=== PATIENT | female | born 1975 | race Caucasian/White ===

== ENCOUNTER 2023-02-23 20:44 | Outpatient (REF) | payer BC, SELFPAY ==
[2023-03-01 15:10] LABS: Age Gdln ACOG Testing Note (.); HPV Aptima Negative (Negative); IGP, Aptima HPV, rfx 16/18,45 Note (.)
== END 2023-02-23 20:45 | disposition home or self-care (01) ==
LOC: LAB 20:44
PROVIDERS: Visit Provider Obstetrics & Gynecology
DX: Z01.419 Encounter for gynecological examination (general) (routine) without abnormal findings (principal)
CPT/HCPCS: 87624; G0145

== ENCOUNTER 2024-02-29 20:06 | Outpatient (REF) | payer BC, SELFPAY ==
[2024-03-06 12:12] LABS: Age Gdln ACOG Testing Note (.); HPV Aptima Negative (Negative); IGP, Aptima HPV, rfx 16/18,45 Note (.)
== END 2024-02-29 20:07 | disposition home or self-care (01) ==
LOC: LAB 20:06
PROVIDERS: Visit Provider Obstetrics & Gynecology
DX: Z01.419 Encounter for gynecological examination (general) (routine) without abnormal findings (principal)
CPT/HCPCS: 87624; 88175

== ENCOUNTER 2025-03-13 21:56 | Outpatient (REF) | payer BC, SELFPAY ==
--- OUTSIDE RECORDS SUMMARY | 2025-03-13 22:02 | XMS_ITS | CCD ---
Author Organization [facility]ini[facility] Care Team Providers Care Director Specialty Name Role Phone NIEVES, SAMER Unavailable Unavailable JACQUE HANSON Unavailable Unavailable NIEVES, SAMER Unavailable Unavailable DR KIT MENDEZ Admitting Unavailable DR KIT MENDEZ Attending Unavailable REQUEST, NONE LISTED Primary Care Unavaila ble DR KIT MENDEZ Consulting Unavailable MD Jacque Hanson Primary Care Provider MD Jacque Hanson Attending Provider MD Jacque Hanson Primary Care Provider Kit Mendez Attending Provider Diane Peraza Unavailable JERICHO Peraza Attending Provider MD Jacque Hanson Primary Care Provider JERICHO Peraza Attending Provider MD Jacque Hanson Primary Care Provider JERICHO Peraza Attending Provider MD Jacque Hanson Primary Care Provider JERICHO Peraza Attending Provider MD Jacque Hanson Primary Care Provider DO Kit Mendez Attending Provider Jacque Hanson MD Primary Care Provider Kit Mendez DO Attending Provider Diane Perez Attending Provider Jacque Hanson MD Primary Care Provider Karmen, Diane R Attending Unavailable Ruttino, Diane R Admitting Unavailable Ketvertis, Jacque Primary Care Unavailable Ruttino, Diane R Attending Unavailable Ketvertis, Jacque Primary Care Unavailable Ruttino, Diane R Admitting Unavailable Ruttino, Diane R Attending Unavailable Ketvertis, Jacque Primary Care Unavailable Ruttino, Diane R Admitting Unavailable Andrea, Kit Admitting Unavailable Andrea, Kit Attending Unavailable Ketvertis, Jacque Primary Care Unavailable Ruttino, Diane R Admitting Unavailable Ketvertis, Jacque Primary Care Unavailable Ruttino, Diane R Attending Unavailable Ruttino, Diane R Admitting Unavailable Ketvertis, Jacque Primary Care Unavailable Ruttino, Diane R Attending Unavailable Ketvertis, Jacque Primary Care Unavailable Ketvertis, Jacque Attending Unavailable Ketvertis, Jacque Admitting Unavailable Ketvertis Jacque BENITEZ Unavailable [phone] TIMA LUGO Attending Unavailable ANDREA, KIT Attending Unavailable KETVERTIS, JACQUE Sanchez Attending Unavailable KETVERTIS, JACQUE Sanchez Attending Unavailable KETVERTIS, JACQUE Sanchez Referring Unavailable KETVERTIS, JACQUE Sanchez Referring Unavailable Allergies Allergy Classification Reported Allergen(s) Allergy Type Date of Onset Reaction(s) Facility (14 sources) gabapentin; Translations: [GABAPENTIN] Drug Allergy 04-09-2018 Headache [facility] Repository (1 source) gabapentin Drug Allergy 02-16-2017 [facility] Repository (1 source) Unable to Assess Drug allergy (disorder) 02-19-2018 [facility] Repository Medications Current Medications Medication Drug Class(es) Dates Sig (Normalized) Sig (Original) amoxicillin 875 mg / clavulanate 125 mg oral tablet (2 sources) Penicillin-class Antibacterial Start: 12-26-2024 End: 01-05-2025 take 1 tablet by mouth in the morning amoxicillin-clavu lanate (Augmentin) 875-125 MG tablet Indications: Acute bacterial sinusitis Take 1 tablet (875 mg) by mouth in the morning and 1 tablet (875 mg) before bedtime. Do all this for 10 days. 20 tablet 12/26/2024 01/05/2025 Active 24 hr metFORMIN hydrochloride 500 mg extended release oral tablet (1 source) Biguanide metFORMIN HCl ER 500 MG Oral for 30 Days Active pimecrolimus 10 mg/ml topical cream (8 sources) Calcineurin Inhibitor Immunosuppressant Start: 05-29-2024 pimecrolimus (Elidel) 1 % cream APPLY A THIN LAYER TO AFFECTED AREAS ON FACE ONCE A DAY NEEDED FOR FLARES 05/29/2024 Active Problems Active Problems Problem Classification Problem Date Documented Date Episodic/Chronic Immunizations and screening for infectious disease (1 source) Encounter for screening for human papillomavirus (HPV); Translations: [ENC SCREENING HUMAN PAPILLOMAVIRUS] Onset: 02-20-2022 Episodic Menopausal disorders (13 sources) Menopausal flushing; Translations: [Menopausal and female climacteric states] Onset: 11-14-2022 02-02-2023 Chronic Nonmalignant breast conditions (13 sources) Fibrocystic disease of breast; Translations: [Diffuse cystic mastopathy of unspecified breast] Onset: 01-30-2023 01-30-2023 Chronic Other diseases of veins and lymphatics (1 source) Vascular insufficiency; Translations: [Venous insufficiency (chronic) (peripheral)] Episodic Other diseases of veins and lymphatics (1 source) Venous insufficiency (chronic) (peripheral) Episodic Other screening for suspected conditions (not mental disorders or infectious disease) (3 sources) Encounter for screening mammogram for malignant neoplasm of breast; Translations: [Patient encounter status] Onset: 03-28-2024 03-13-2025 Episodic Other upper respiratory infections (20 sources) Chronic maxillary sinusitis; Translations: [Chronic maxillary sinusitis] Onset: 01-30-2023 Resolved: 02-02-2023 02-02-2023 Chronic Other upper respiratory infections (2 sources) Acute bacterial sinusitis; Translations: [Acute sinusitis, unspecified] 12-26-2024 Episodic Residual codes; unclassified (8 sources) Bilateral lower limb edema; Translations: [Localized edema] 09-07-2023 Episodic Residual codes; unclassified (3 sources) Localized edema; Translations: [Edema] 09-07-2023 Episodic Residual codes; unclassified (2 sources) Postmenopausal state; Translations: [Asymptomatic menopausal state] 03-13-2025 Episodic Thyroid disorders (15 sources) Thyroid nodule; Translations: [Nontoxic single thyroid nodule] Onset: 01-30-2023 01-30-2023 Chronic Unclassified (1 source) Varicose veins of left lower extremity with pain; Translations: [Varicose veins of left lower extremity with pain] Onset: 08-21-2023 Unclassified (1 source) Varicose veins of right lower extremity with pain; Translations: [Varicose veins of right lower extremity with pain] Onset: 08-07-2023 Past or Other Problems Problem Classification Problem Date Documented Da te Episodic/Chronic Anxiety disorders (13 sources) Anxiety; Translations: [Anxiety disorder, unspecified] Onset: 3 Resolved: 3 02-02-2023 Chronic Chronic obstructive pulmonary disease and bronchiectasis (13 sources) Bronchitis; Translations: [Bronchitis, not specified as acute or chronic] Onset: 3 Resolved: 3 02-02-2023 Episodic Esophageal disorders (13 sources) Gastroesophageal reflux disease; Translations: [Gastro-esophageal reflux disease without esophagitis] Onset: 3 Resolved: 3 02-02-2023 Chronic Other gastrointestinal disorders (13 sources) Dysphagia; Translations: [Dysphagia, unspecified] Onset: 3 Resolved: 3 02-02-2023 Episodic Other infections; including parasitic (13 sources) History of Lyme disease; Translations: [Personal history of other infectious and parasitic diseases] Onset: 8 Resolved: 3 05-31-2023 Episodic Other lower respiratory disease (13 sources) Cough; Translations: [Cough] Onset: 3 Resolved: 3 02-02-2023 Episodic Other lower respiratory disease (13 sources) Wheezing; Translations: [Wheezing] Onset: 3 Resolved: 3 02-02-2023 Episodic Other nervous system disorders (13 sources) Muscle twitch; Translations: [Fasciculation] Onset: 3 01-30-2023 Episodic Other nervous system disorders (13 sources) Disorder of large intestine; Translations: [Other disturbances of skin sensation] Onset: 3 Resolved: 3 02-02-2023 Episodic Other nervous system disorders (13 sources) Involuntary movement; Translations: [Unspecified abnormal involuntary movements] Onset: 8 Resolved: 3 05-31-2023 Episodic Other nervous system disorders (13 sources) Skin sensation disturbance; Translations: [Unspecified disturbances of skin sensation] Onset: 9 Resolved: 3 05-31-2023 Episodic Superficial injury; contusion (2 sources) Insect bite of lower limb; Translations: [Insect bite (nonvenomous), unspecified lower leg, initial encounter] 03-12-2024 Episodic Varicose veins of lower extremity (20 sources) Varicose veins of lower extremity; Translations: [Varicose veins of bilateral lower extremities with other complications] Onset: 3 Episodic Results Test Name Value Interpretation Reference Range Facility CT SINUS WOon 06-17-2024 CT SINUS WO EXAMINATION: CT SINU S WO HISTORY: chronic sinusitis left-sided maxillary sinus pressure and drainage. TECHNIQUE: Spiral high resolution axial unenhanced CT images were obtained through the paranasal sinuses with sagittal, coronal reconstructions. All CT scans at this facility use dose modulation, iterative reconstruction, and/or weight based dosing when appropriate to reduce radiation dose to as low as reasonably achievable. COMPARISON: None. RESULT: Post-Surgical Findings: None Sinus Chambers: Clear. Nasal Cavities: Visualized nasal cavities are patent. Ostiomeatal Complex: Patent within the constraints of the study. Other: The visualized mastoid air cells and middle ear cavities are clear. The soft tissues of the face and orbits are within normal limits within the limitations of the study. Visualized brain grossly unremarkable. IMPRESSION: Clear paranasal sinuses. ELECTRONICALLY SIGNED BY: Chava Fleming MD Normal Not Available US THYROIDon 06-12-2024 US THYROID US THYROID Reason for exam: Nodules Technique: Ultrasound of the thyroid and lower neck was performed, with color flow Doppler and spectral analysis. Comparison: 06/16/2023, 06/24/2022 FINDINGS: Right lobe: Normal size and parenchymal echogenicity. Complex, hypoechoic circumscribed nodule of the posterior right mid gland measures 8 x 6 x 7 mm. Left lobe: Normal size and parenchymal echogenicity. No evidence of any mass, cyst or shadowing calcification. Isthmus: Normal size and parenchymal echogenicity. No evidence of any mass, cyst or shadowing calcification. Lymph nodes: Negative for lymphadenopathy. Measurements: Impression: Subthreshold nodule in the right lobe, TI-RADS 4, stable from 06/16/2023 and 06/24/2022. Right lobe: 5.1 x 1.9 x 1.6 cm Left lobe: 4.7 x 1.5 x 1.5 cm Isthmus: 0.23 cm Reference: ACR white paper 2017. Followup: TR3 lesion: Thyroid US at 1, 3 and 5 years. TR4 lesion: Thyroid US at 1, 2, 3 and 5 years. TR5 lesion: Thyroid ultrasound every year for up to 5 years. Dictated on: 06/12/2024 9:47 PM This report has been electronically signed and approved by the interpreting Radiologist. Normal Not Available Comprehensive Metabolic Pane ankur 06-06-2024 Albumin [Mass/Vol] 4.5 g/dL Normal 3.5-5.7 [facility] Comment on above: Performed By: #### L IPID, CMP, TSH3 #### [facility] [address] Albumin/Globulin [Mass ratio] 2.4 {ratio} Normal [facility] Comment on above: Performed By: #### L IPID, CMP, TSH3 #### [facility] [address] [place] [id number] [place] ALP [Catalytic activity/Vol] 37 U/L Normal 34-104 [facility] Comment on above: Performed By: #### L IPID, CMP, TSH3 #### [facility] [address] [place] [id number] [place] ALT [Catalytic activity/Vol] 12 U/L Normal 7-52 [facility] Comment on above: Performed By: #### L IPID, CMP, TSH3 #### [facility] [address] [place] [address] [place] Anion gap [Moles/Vol] 10.3 mmol/L Normal 6.0-15.0 [facility] Comment on above: Performed By: #### L IPID, CMP, TSH3 #### [facility] [address] [place] [address] [facility] AST [Catalytic activity/Vol] 13 U/L Normal 13-39 [facility] Comment on above: Performed By: #### L IPID, CMP, TSH3 #### [address] Bilirubin [Mass/Vol] 0.9 mg/dL Normal 0.3-1.0 [facility] Comment on above: Performed By: #### L IPID, CMP, TSH3 #### [address] Calcium [Mass/Vol] 9.6 mg/dL Normal 8.6-10.3 [facility] Comment on above: Performed By: #### L IPID, CMP, TSH3 #### [address] Chloride [Moles/Vol] 104 mmol/L Normal 98-107 [facility] Comment on above: Performed By: #### L IPID, CMP, TSH3 #### [address] CO2 [Moles/Vol] 29.0 mmol/L Normal 21.0-31.0 [facility] Comment on above: Performed By: #### L IPID, CMP, TSH3 #### [address] Creatinine [Mass/Vol] 0.78 mg/dL Normal 0.60-1.20 [facility] Comment on above: Performed By: #### L IPID, CMP, TSH3 #### [address] GFR/1.73 sq M.predicted MDRD (S/P/Bld) [Vol rate/Area] mL/min/{1.73_m2} Normal [facility] Comment on above: Performed By: #### L IPID, CMP, TSH3 #### [address] Globulin (S) [Mass/Vol] 1.9 g/dL Normal [facility] Comment on above: Performed By: #### L IPID, CMP, TSH3 #### [place] [address] [place] Glucose [Mass/Vol] 84 mg/dL Normal 70-100 [facility] Comment on above: Result Comment: [facility] Glucose Reference Range is dependent on time and content of last meal. Glucose of more than 200 mg/dL in a nonstressed, ambulatory subject supports the diagnosis of Diabetes Mellitus. ADA recommended reference range Performed By: #### L IPID, CMP, TSH3 #### [address] Potassium [Moles/Vol] 4.3 mmol/L Normal 3.5-5.1 [facility] Comment on above: Performed By: #### L IPID, CMP, TSH3 #### [address] Protein [Mass/Vol] 6.4 g/dL Normal 6.4-8.9 [facility] Comment on above: Performed By: #### L IPID, CMP, TSH3 #### [address] Sodium [Moles/Vol] 139 mmol/L Normal 136-145 [facility] Comment on above: Performed By: #### L IPID, CMP, TSH3 #### [address] Urea nitrogen [Mass/Vol] 13 mg/dL Normal 7-25 [facility] Comment on above: Performed By: #### L IPID, CMP, TSH3 #### [address] Hemogram CBC Without Diffon 06-06-2024 Erythrocyte distribution width (RBC) [Ratio] 12.4 % Normal 11.9-15.3 [facility] Comment on above: Performed By: #### C BCNO #### [address] Hematocrit (Bld) [Volume fraction] 43.7 % Normal 34.0-46.4 [facility] Comment on above: Performed By: #### C BCNO #### [place] [address] [place] Hemoglobin (Bld) [Mass/Vol] 14.9 g/dL Normal 11.8-15.4 [facility] Comment on above: Performed By: #### C BCNO #### [address] MCH (RBC) [Entitic mass] 30.4 pg Normal 24.7-34.3 [facility] Comment on above: Performed By: #### C BCNO #### [address] MCV (RBC) [Entitic vol] 89.3 fL Normal 80-100 [facility] Comment on above: Performed By: #### C BCNO #### [address] Mean Corpuscular HGB Conc 34.1 g/dL Normal 32.0-35.0 [facility] Comment on above: Performed By: #### C BCNO #### [address] Platelet mean volume (Bld) [Entitic vol] 9.1 fL Normal 6.3-10.7 [facility] Comment on above: Result Comment: PERF ORMED BY: [place] [address] PATHOLOGIST [employer]ATE MILL DALY WHITEHEAD M.D. Performed By: #### C BCNO #### [address] Platelets (Bld) [#/Vol] 315 10*3/uL Normal 150-450 [facility] Comment on above: Performed By: #### C BCNO #### [address] RBC (Bld) [#/Vol] 4.89 10*6/uL Normal 3.60-5.00 [facility] Comment on above: Performed By: #### C BCNO #### [address] WBC (Bld) [#/Vol] 5.8 10*3/uL Normal 3.8-11.6 [facility] Comment on above: Performed By: #### C BCNO #### [facility] [address] Laboratory - Chemistry and C hemistry - challengeon 06-06-2024 Albumin [Mass/Vol] 4.5 g/dL 3.5 - 5.7 g/dL [facility] Albumin/Globulin [Mass ratio] 2.4 {ratio} [facility] ALP [Catalytic activity/Vol] 37 U/L 34 - 104 U/L [facility] ALT [Catalytic activity/Vol] 12 U/L 7 - 52 U/L [facility] Anion gap [Moles/Vol] 10.3 mmol/L 6.0 - 15.0 meq/L [facility] AST [Catalytic activity/Vol] 13 U/L 13 - 39 U/L [facility] Bilirubin [Mass/Vol] 0.9 mg/dL 0.3 - 1.0 mg/dL [facility] Calcium [Mass/Vol] 9.6 mg/dL 8.6 - 10. 3 mg/dL [facility] Chloride [Moles/Vol] 104 mmol/L 98 - 107 mmol/L [facility] CO2 [Moles/Vol] 29 mmol/L 21.0 - 31.0 mmol/L [facility] Creatinine (U) [Mass/Vol] 0.78 mg/dL 0.60 - 1.20 mg/dL [facility] Globulin (S) [Mass/Vol] 1.9 g/dL [facility] Glucose [Mass/Vol] 84 mg/dL 70 - 100 mg/dL [facility] Comment on above: Random Glucose Refer ence Range is dependent on time and content of last meal. Glucose of more than 200 mg/dL in a nonstressed, ambulatory subject supports the diagnosis of Diabetes Mellitus. ADA recommended reference range Potassium [Moles/Vol] 4.3 mmol/L 3.5 - 5.1 mmol/L [facility] Protein [Mass/Vol] 6.4 g/dL 6.4 - 8.9 g/dL [facility] Sodium [Moles/Vol] 139 mmol/L 136 - 145 mmol/L [facility] TSH Qn 0.76 m[IU]/L 0.45 - 5.33 u[iU]/mL [facility] Urea nitrogen [Mass/Vol] 13 mg/dL 7 - 25 mg/dL [facility] Laboratory - Hematology and Cell countson 06-06-2024 Erythrocyte distribution width (RBC) [Ratio] 12.4 % 11.9 - 15.3 % [facility] Hematocrit (Bld) [Volume fraction] 43.7 % 34.0 - 46.4 % [facility] Hemoglobin (Bld) [Mass/Vol] 14.9 g/dL 11.8 - 15.4 g/dL [facility] MCH (RBC) [Entitic mass] 30.4 pg 24.7 - 34.3 pg [facility] MCHC (RBC) [Mass/Vol] 34.1 g/dL 32.0 - 35.0 g/dL [facility] MCV (RBC) [Entitic vol] 89.3 fL 80 - 100 fL [facility] Platelet mean volume (Bld) [Entitic vol] 9.1 fL 6.3 - 10.7 fL [facility] Platelets (Bld) [#/Vol] 315 10*3/uL 150 - 450 10*3/uL [facility] Laboratory - Urinalysison RBC LM.HPF (Urine sed) [#/Area] 4.89 10*6/uL 3.60 - 5.00 10*6/uL [facility] WBC LM.HPF (Urine sed) [#/Area] 5.8 10*3/uL 3.8 - 11.6 10*3/uL [facility] Lipid 1996 panelon 4 Cholesterol [Mass/Vol] 176 mg/dL 140 - 200 mg/dL [facility] Comment on above: Chol less than 200 m g/dl low risk Chol 201-239 mg/dl borderline risk Chol 240 mg/dl and greater high risk Cholesterol in HDL [Mass/Vol] 64 mg/dL 23 - 92 mg/dL [facility] Comment on above: HDL CHOL ATP-III CLA SSIFICATION Cardiovascular Risk HDL > or equal to 60 mg/dL LOW HDL < 40 mg/dL HIGH Cholesterol.total/ Cholesterol in HDL [Mass ratio] 2.8 {ratio} NINF - 5.0 [facility] LDL CHOLESTEROL,CALCUL ATED 96 mg/dL 0 - 100 mg/dL [facility] Comment on above: LDL ATP III CLASSIFI CATION LDL less than 100 mg/dL Optimal LDL 100-129 mg/dL Near or above optimal LDL 130-159 mg/dL Borderline high LDL 160-189 mg/dL High LDL greater than 189 mg/dL Very high TRIGLYCERIDE W/REFLEX 79 mg/dL 0 - 149 mg/dL [facility] Comment on above: TRIG ATP III CLASSIF ICATION TRIG less than 150 mg/dL Normal TRIG 150-199 mg/dL Borderline high TRIG 200-500 mg/dL High TRIG greater than 500 mg/dL Very high Standard traceable to the Center for Disease Conrtrol and Prevention (CDC) test method. VLDL CHOLESTEROL 15 mg/dL [facility] Lipid Panelon 06-06-2024 Cholesterol [Mass/Vol] 176 mg/dL Normal 140-200 [facility] Comment on above: Result Comment: Chol less than 200 mg/dl low risk Chol 201-239 mg/dl borderline risk Chol 240 mg/dl and greater high risk Performed By: #### L IPID, CMP, TSH3 #### [facility] [address] Cholesterol in HDL [Mass/Vol] 64 mg/dL Normal 23-92 [facility] Comment on above: Result Comment: HDL CHOL ATP-III CLASSIFICATION Cardiovascular Risk HDL > or equal to 60 mg/dL LOW HDL < 40 mg/dL HIGH Performed By: #### L IPID, CMP, TSH3 #### [facility] [address] [place] [id number] [facility] Cholesterol.total/ Cholesterol in HDL [Mass ratio] 2.8 {ratio} Normal <5.0 [facility] Comment on above: Performed By: #### L IPID, CMP, TSH3 #### [facility] [address] [place] [id number] [place] LDL Cholesterol,Calcul ated 96 mg/dL Normal 0-100 [facility] Comment on above: Result Comment: LDL ATP III CLASSIFICATION LDL less than 100 mg/dL Optimal LDL 100-129 mg/dL Near or above optimal LDL 130-159 mg/dL Borderline high LDL 160-189 mg/dL High LDL greater than 189 mg/dL Very high Performed By: #### L IPID, CMP, TSH3 #### [facility] [address] [place] [address] [place] Triglyceride w/Reflex 79 mg/dL Normal 0-149 [facility] Comment on above: Result Comment: TRIG ATP III CLASSIFICATION TRIG less than 150 mg/dL Normal TRIG 150-199 mg/dL Borderline high TRIG 200-500 mg/dL High TRIG greater than 500 mg/dL Very high Standard traceable to the Center for Disease Conrtrol and Prevention (CDC) test method. Performed By: #### L IPID, CMP, TSH3 #### [facility] [address] VLDL CHOLESTEROL 15 mg/dL Normal [facility] Comment on above: Performed By: #### L IPID, CMP, TSH3 #### [facility] [address] No Panel Informationon 06-06 ESTIMATED GFR mL/Min [facility] Thyroid Stimulating Hormoneo n 06-06-2024 TSH Qn 0.76 m[IU]/L Normal 0.45-5.33 [facility] Comment on above: Result Comment: PERF ORMED BY: [place] [address] PATHOLOGIST [employer] MILL DALY WHITEHEAD M.D. Performed By: #### L IPID, CMP, TSH3 #### [address] US venous duplex LE LTon US venous duplex LE [facility] [address] [place] [address] Ultrasound Report Signed Patient: Alicia Canseco MR#: [id number] : 1975 Acct:[id number] Age/Sex: 48 / F ADM Date: 05/10/24 Loc: [facility] Room: Type: [facility] Attending Dr: Diane Peraza BULLET SWAGING MACHINE ADJUSTER-C Ordering Provider: Diane Peraza APRN Date of Service: 05/10/24 US/US venous duplex LE LT: I83.812 - Varicose veins of left lower extremity with pain Copies to: Diane Peraza APRN Left lower extremity full functional venous duplex examination Indication for study: Painful varicose veins status post venous intervention PROCEDURE: Color-flow duplex scanning is used to interrogate the venous anatomy of the left lower extremity. There is no evidence for deep vein thrombosis. The left common femoral vein, femoral vein, and popliteal vein show good compressibility, color-flow, and augmentation. There has been successful closure of the greater saphenous vein. There is persistent reflux at the saphenofemoral junction for greater than 5 seconds emptying into the anterior saphenous branch. The anterior saphenous branch has been successfully closed 4 cm from the saphenofemoral junction down to the distal thigh. US/US venous duplex LE LT IMPRESSION: No evidence for deep vein thrombosis in the left lower extremity. Successful closure of the greater saphenous vein is noted. Anterior saphenous vein has also been successfully closed 4 cm from the saphenofemoral junction. Impression dictated by: Ad Pepper M.D.05/10/2024 10:43 AM Dictation Location: [place] [address] Tech: Donya Salomon Transcribed By: JUJU 05/10/24 1043 Dictated By: Ad Pepper MD 05/10/24 1041 Signed By: 05/10/24 1043 Normal [facility] US venous duplex LE RTon US venous duplex LE RT [facility] [address] [place] [address] Ultrasound Report Signed Patient: Alicia Canseco MR#: [id number] : 1975 Acct:[id number] Age/Sex: 48 / F ADM Date: 05/03/24 Loc: [facility] Room: Type: [facility] Attending Dr: Diane Peraza BULLET SWAGING MACHINE ADJUSTER-C Ordering Provider: Diane Peraza APRN Date of Service: 05/03/24 US/US venous duplex LE RT: I83.813 - Varicose veins of bilateral lower extremities w... Copies to: Diane Peraza APRN Right lower extremity full functional venous duplex examination Indication for study: Varicose veins status post venous intervention PROCEDURE: Color-flow duplex scanning is used to interrogate the venous anatomy of the right lower extremity. There is no evidence of deep vein thrombosis. The right common femoral vein, femoral vein, and popliteal vein show good compressibility, color-flow, and augmentation. The right greater saphenous vein has been successfully closed. There is persistent reflux at the right saphenofemoral junction for greater than 5 seconds. The anterior saphenous vein has been successfully closed 0.8 cm from the saphenofemoral junction to the mid thigh. US/US venous duplex LE RT IMPRESSION: No evidence for deep vein thrombosis in the right lower extremity. There is sustained saphenofemoral incompetence with greater than 5 seconds of reflux. There has been successful closure of the right greater saphenous vein and anterior saphenous vein. Impression dictated by: Ad Pepper M.D.05/10/2024 10:41 AM Dictation Location: [place] [address] Tech: Chely Chato Transcribed By: JUJU 05/10/24 1041 Dictated By: Ad Pepper MD 05/10/24 1039 Signed By: 05/10/24 1041 Normal [facility] MM screening mammo BI w/CADo n 03-28-2024 MM screening mammo BI w/CAD [facility] Main [place] [address] [place] [address] Mammography Report Signed Patient: Alicia Canseco MR#: [id number] : 1975 Acct:[id number] Age/Sex: 48 / F ADM Date: 03/28/24 [facility]: [facility] Room: Type[facility] Attending Dr: Kit Mendez DO Copies to: Kit Hanson MD Ordering Provider: Kit Mendez Date of Service: 03/28/24 MM/MM screening mammo BI w/CAD: Z12.31 CLINICAL DATA: Screening for malignancy. BILATERAL SCREENING MAMMOGRAMS - FULL FIELD DIGITAL WITH TOMOSYNTHESIS AND CAD Tomosynthesis craniocaudal and mediolateral oblique views of both breasts were obtained using low- dose digital technique. Comparison is made to prior studies from 03/16/2023, 09/09/2022, 08/26/2021, and 08/05/2020. This examination was reviewed with the aid of CAD. The breast parenchyma is heterogeneously dense. Benign-appearing lymph nodes are noted along the chest wall. Benign-appearing calcifications are present. There are no dominant masses, typically malignant calcifications or architectural distortion. There has been no significant interval change. MM/MM screening mammo BI w/CAD IMPRESSION: NO MAMMOGRAPHIC EVIDENCE OF MALIGNANCY. ROUTINE FOLLOW-UP IS RECOMMENDED IN ONE YEAR. RESULT CODE: 2 Benign Findings(s) DENSITY CODE: 3 (approximately 51-75% glandular) FOLLOW UP: 1YR The false-negative rate of mammography is approximately 10-percent. Management of a palpable abnormality must be based on clinical grounds. Patient was entered into a reminder system with a target due date for the next mammogram. Impression dictated by: Alexei Fuller M.D.03/28/2024 11:38 AM Dictation Location: [facility] Transcribed By: JUJU 03/28/24 1138 Dictated By: Alexei Fuller II, MD 03/28/24 113 Signed By: 03/28/24 1138 Normal [facility] IGP,APTIMA HPV,AGE GDLNon AGE GDLN ACOG TESTING Note . [facility] Comment on above: TESTS RESULT FLAG UN ITS REF RANGE LAB Clinician Provided Cytology Information Source.............Vagina No. of containers..01 ThinPrep Vial Age Algo ACOG Jillian... - FLAG LEGEND: L-Low Normal,H-High Normal,LL-Alert Low,HH-Alert High <-Panic Low,>-Panic High,A-Abnormal,AA-Critical Abnormal Performed at: 01 =[address] [place] [address] Silvia Arzola MD, HPV APTIMA Negative Negative [facility] Comment on above: This nucleic acid am plification test detects fourteen high- risk HPV types (16,18,31,33,35,39,45,51,52,56,58,59,66,68) without differentiation. Performed at: =[address] [id number] Supervisor Asbestos Removal: Silvia Arzola MD, Phone: [phone] Performed at: [address], [place] [id number] Supervisor Asbestos Removal: Silvia Arzola MD, Phone: [phone] IGP, APTIMA HPV, RFX 16/18,45 Note . [facility] Comment on above: TESTS RESULT FLAG UN ITS REF RANGE LAB DIAGNOSIS: 02 NEGATIVE FOR INTRAEPITHELIAL LESION OR MALIGNANCY. Specimen adequacy: 02 Satisfactory for evaluation. Performed by: Rivka Davenport Meter And Regulator Shop Supervisor ([facility]) . 02 Note: Note 02 The Pap smear is a screening test designed to aid in the detection of premalignant and malignant conditions of the uterine cervix. It is not a diagnostic procedure and should not be used as the sole means of detecting cervical cancer. Both false-positive and false-negative reports do occur. Test Methodology: Note 02 This liquid based ThinPrep(R) pap test was screened with the use of an image guided system. HPV Genotype Reflex Note 02 Criteria not met, HPV Genotype not performed. FLAG LEGEND: L-Low Normal,H-High Normal,LL-Alert Low,HH-Alert High <-Panic Low,>-Panic High,A-Abnormal,AA-Critical Abnormal Performed at: 02 WB [facility] [address] [place] [address] Silvia Arzola MD, SPATULA-ALONE VAGINA [facility] US venous duplex [facility] US venous duplex LE [facility] [address] [place] [address] Ultrasound Report Signed Patient: Alicia Canseco MR#: [id number] : 1975 Acct:[id number] Age/Sex: 48 / F ADM Date: 11/13/23 Loc: [facility] Room: Type: [facility] Attending Dr: Diane Peraza BULLET SWAGING MACHINE ADJUSTER-C Ordering Provider: Diane Peraza APRN Date of Service: 11/13/23 US/US venous duplex LT: I83.893 - Varicose veins of bilateral lower extremities w... Copies to: Diane Peraza APRN Left lower extremity venous duplex examination Indication for study: Painful varicose veins status post sclerotherapy PROCEDURE: Color-flow duplex scanning is used to interrogate the venous anatomy the left leg. The left common femoral vein, femoral vein, popliteal vein show good compressibility, color-flow, and augmentation. The greater saphenous vein is been ablated. There is reflux for greater than 5 seconds at the saphenofemoral junction emptying into an anterior saphenous vein. There is been successful sclerosis of varicosities in the medial distal thigh down to the proximal calf. There is been successful sclerosis of varicosities on the lateral calf proximally. US/US venous duplex LE LT IMPRESSION: No evidence for deep vein thrombosis in the left lower extremity. There is persistent reflux at the saphenofemoral junction due to an incompetent anterior saphenous vein branch. There is been successful sclerosis of multiple varicosities on the thigh and calf. Impression dictated by: Ad Pepper M.D.11/14/2023 10:45 AM Dictation Location: [place] [address] Tech: Montse Belcher Transcribed By: JUJU 11/14/23 1045 Dictated By: Ad Pepper MD 11/14/23 1043 Signed By: 11/14/23 1045 Normal [facility] US venous duplex LE LTon US venous duplex LE LT [facility] Main [place] [address] [place] [address] Ultrasound Report Signed Patient: Alicia Canseco MR#: [id number] : 1975 Acct:[id number] Age/Sex: 47 / F ADM Date: 08/21/23 Loc: [facility] Room: Type: [facility] Attending Dr: Diane Peraza BULLET SWAGING MACHINE ADJUSTER-C Ordering Provider: Diane Peraza APRN Date of Service: 08/21/23 US/US venous duplex LE LT: I83.812 S/P VARITHENA Copies to: Diane Peraza APRN Left lower extremity full functional venous duplex examination Indication for study: Symptomatic varicose veins status post saphenous closure and sclerotherapy PROCEDURE: Color-flow duplex scanning is used to interrogate the venous anatomy of the left lower extremity. There is no evidence for deep vein thrombosis. The left common femoral vein, femoral vein, and popliteal vein show good compressibility, color-flow, and augmentation. Left greater saphenous vein has been ablated. The anterior saphenous vein remains patent and there is greater than 5 seconds of reflux at the saphenofemoral junction. Multiple incompressible varicosities are noted in the medial calf and extending into the thigh. Residual varicosities are compressible in the proximal thigh. US/US venous duplex LE LT IMPRESSION: No evidence for deep vein thrombosis. Successful closure of the greater saphenous vein. Successful sclerosis of multiple varicosities in the medial calf in the thigh. Residual varicosities in the proximal thigh are noted Impression dictated by: Ad Pepper M.D.08/22/2023 11:29 AM Dictation Location: [place] [address] Tech: Priscilla Andino Transcribed By: JUJU 08/22/23 1129 Dictated By: Ad Pepper MD 08/22/23 112 Signed By: 08/22/23 112 Normal [facility] US venous duplex LE RTon US venous duplex LE RT [facility] Main [place] [address] [place] [address] Ultrasound Report Signed Patient: Alicia Canseco MR#: [id number] : 1975 Acct:[id number] Age/Sex: 47 / F ADM Date: 08/07/23 Loc: [facility] Room: Type: [facility] Attending Dr: Diane Peraza BULLET SWAGING MACHINE ADJUSTER-C Ordering Provider: Diane Peraza APRN Date of Service: 08/07/23 US/US venous duplex LE RT: [id number], S/P VARITHENA Copies to: Diane Peraza APRN RIGHT LOWER EXTREMITY VENOUS DUPLEX INDICATION: Surveillance study after vein procedure. Unilateral right lower extremity venous duplex Doppler study was obtained utilizing B-mode, color- flow and spectral Doppler. FINDINGS: The right common femoral, femoral, and popliteal veins showed adequate compressibility, color-flow and augmentation. US/US venous duplex LE RT IMPRESSION: NO EVIDENCE OF DEEP VENOUS THROMBOSIS IN THE RIGHT LOWER EXTREMITY. Impression dictated by: Michael Connors MD08/08/2023 4:52 PM Dictation [facility] Tech: Donya Salomon Transcribed By: JUJU 08/08/231651 Dictated By: Michael Connors MD 08/08/231651 Signed By: 08/08/231651 Normal [facility] PAP ACOG PANEL 2: 30 to 65on 02-22-2022 . . Normal [facility] Comment on above: Result Comment: Perf ormed at: WB Performed By: #### [id number] #### [facility] [address] [place] [address] Dr. Juan Miguel Santos Age Gdln ACOG Testing 30-65 Normal [facility] Comment on above: Performed By: #### 4 [id number] #### [facility] [address] [place] [address] [address] Juan Miguel Santos DIAGNOSIS: Comment Normal [facility] Comment on above: Result Comment: NEGA TIVE FOR INTRAEPITHELIAL LESION OR MALIGNANCY. Performed at: WB Performed By: #### 4 [id number] #### [facility] [address] [place] [address] [address] Juan Miguel Santos HPV Aptima Negative Normal Negative [facility] Comment on above: Result Comment: This nucleic acid amplification test detects fourteen high-risk HPV types (16,18,31,33,35,39,45,51,52,56,58,59,66,68) without differentiation. Performed at: =G Performed By: #### 4 [id number] #### [facility] [address] [place] [address] Dr. Juan Miguel Santos Methodology: Comment Normal [facility] Comment on above: Result Comment: This liquid based ThinPrep(R) pap test was screened with the use of an image guided system. Performed at: WB Performed By: #### [id number] #### [facility] [address] [place] [address] Dr. Juan Miguel Santos Note: Comment Normal [facility] Comment on above: Result Comment: The Pap smear is a screening test designed to aid in the detection of premalignant and malignant conditions of the uterine cervix. It is not a diagnostic procedure and should not be used as the sole means of detecting cervical cancer. Both false-positive and false-negative reports do occur. . Performed at: WB Performed By: #### 4 [id number] #### [facility] [address] [place] [address] [address] Juan Miguel Santos Performed by: Comment Normal [facility] Comment on above: Result Comment: Mike Mustafa Meter And Regulator Shop Supervisor ([employer]) Performed at: WB Performed By: #### 4 [id number] #### [facility] [address] [place] [address] Dr. Juan Miguel Santos Specimen adequacy: Comment Normal [facility] Comment on above: Result Comment: Sati sfactory for evaluation. No endocervical component is identified. Performed at: WB Performed By: #### 4 [id number] #### [facility] [address] [place] [address] [address] Juan Miguel Weathers 04-09-2018 CNOV Office Visit (NEADFV) ALICIA CANSECO ([id number]) 1975 FDate Time Provider Department04/09/18 1:40 PM ELENA NIEVES NEGUSTAVO During your visit today, we recorded the following information about you: Temperature Pulse Respiration Blood pressure 98.9 degrees 69/minute 16/minute 115/53 Weight Height 52.6 kg 1.702 Sánchez Nieves MD 04/09/2018 2:52 PM SignedHISTORY AND PHYSICAL EXAMINATION - GENERAL NEUROLOGYSERVICE DATE: 04/09/2018SERVICE TIME:PRIMARY CARE PHYSICIAN: OTIS GouldURRENT ATTENDING PROVIDER: No att. providers foundSubjectiveREASON FOR EVALUATION: muscle twitching.HPI/CHIEF COMPLAINT:This is Ms. Alicia Canseco a 42 year old right handed [facility] a [facility].09/2017 patient had a histoecymy for abnormal pap smears and in 2 weeks shedevelop episodic left leg numbness and which took then disappaers in 5 to 6weeks and then disappeared. She also developed muscle twitching in her legs andthey are non painful. She denies any muscle spasms but she would feel themuscle tiwtching in her biscpes and in her shoulder. The muscle tiwcing canoccur at night but she never feels the symptom waking her up from sleep. Shedenied any back pain, falling, dysphagia, dyspnea, dysarthria/dysphonia,impa ired mastication, facial weakness/droop, diplopia or ptosis. She is ableto perform all ADLs independently. These symptoms have not kept the patientaway from her job or impaired her work performance. MRI of the brain was doneand it was reported as a normal examination. She also had EMG of the upper extwhich was reported as mild CTS bilaterally per patient.FUNCTIONAL STATUS: IndependentNo past medical history on file.No past surgical history on file.No family history on file.Social HistorySubstance Use Topics- Smoking status: Never Smoker- Smokeless tobacco: Never Used- Alcohol use Not on file(Not in a hospital admission)ALLERGIESAllerg en Reactions- Neurontin [Gabapent* GI Upset Headache AND nauseaCOMPLETE REVIEW OF SYSTEMS:GENERAL: No fevers or irritability.HEENT: Negative for headaches, No problems with hearing or vision, no nosebleeds or other nasal problems.NECK: mild neck pain.RESPIRATORY: Negative for cough, wheezing or respiratory distress.CARDIOVASCULAR: Negative for chest pain, syncope, lightheadness or heart racing.GI: Negative for abdominal discomfort, blood in stools or black stools orchange in bowel habitsGU: No history of dysuria, frequency or incontinenceMUSCULOSKELET AL: Negative for joint pain or swelling, back pain or muscle pain.SKIN: Negative for lesions, rash, and itching.NEURO: See HPIObjectivePHYSICAL EXAM:Vital Signs: BP 115/53 Pulse 69 Temp 98.9 Resp 16 Ht 5' 7 (1.70m) Wt116 lb (52.6kg) SpO2 100% BMI 18.16 kg/(m2).General appearance: Well appearing, alert, in no acute distressSkin: Not examinedHead: NormocephalicNose/Sinuses : Not examinedOropharynx: Negative findings: tongue midline and normalNeck: Supple.Lungs: lungs clear to auscultationHeart: Negative findings: S1 normal, S2 normalCarotid Auscultation: Without bruitsAbdomen: Normal abdominal examExtremities: Negative findings: No cyanosis,or clubbing.Peripheral pulses: NormalNeurological Examination:? Mental Status: Alert and Oriented to Place, Person, Time and Situation andPatient follows commands..? Language: Is intact to Comprehension, Fluency and RepetitionCranial Nerves:CNII: Visual acuity normal, Visual mckeon full to confrontationCNIII, IV, : Pupils equal, round and reactive to light, full extraoccularmovements, without nystagmusCN V: Facial sensation intact bilaterally to fine touch and pinprick, masseter5/5CN VII: Facial muscles symmetric and strongCN VIII: Hears finger rub well bilaterallyCN IX: Gag Reflex Not examinedCN X: Palate elevates symmetricallyCN XI: Full strength shoulder shrug bilaterallyCN XII: Tongue protrusion full and midline? Non-Dilated Fundiscopic Examination: Deferred Examination? Motor Exam:1. Tone - Normal Tone noted in all extremities2. Bulk - Normal bulk noted in all muscles tested.3. Inspection - Normal, no fasciculations or tremors noted.4. Power:MUSCLESUpper Extremity RIGHT LEFTDeltoid 5 5/5Biceps 11/18 5/5Triceps 11/18 5/5Wrist Extension 11/18 55Wrist Flexion 11/18 5/5Finger Flexion 11/18 5/5Finger Extension 11/18 5/5Finger Abd 11/18 5/5Finger Add 11/18 5/5MUSCLESLower Extremity RIGHT LEFTHip Flexion 11/18 5/5Hip Extension 11/18 5/5BiFem (Knee Flex) 11/18 5/5Quads (Knee Ext) 11/18 5/5Gastroc (Plantflx) 11/18 5/5TibAnt (Dorsiflx) 11/18 5/5TibPost (Ank Add) 11/18 5/5Ankle Eversion 11/18 5/5Ankle Inversion 11/18 5/5FlxHLong (Toe Flex) 11/18 5/5ExtHLong (Toe Ext) 11/18 55? Sensory ExaminationSensation is intact to proprioception, light touch and vibratory sense.? Reflexes Right LeftBicep 2/4 2/4Tricep 2/4 2/4BrRad 2/4 2/4Knee 2/ 2/4Ankle 2/ 2/4Plantar Response Downward response Downward responseHoffman Response Negative Negative? Coordination: Finger-to- nose-finger intact bilaterally.? Gait: Patient's gait is normal, can heel and toe walk and can tandem walk? Romberg: NegativeDATA:Diagnostic tests reviewed for today's visit:EMG and MRI estrada.BLOODWORK:No results found for: WBC, RBC, PLT, BUN, CREATNo results found for: NEUTP, ABSNEUT, LYMPHP, ABSLYMPH, ABSMONO, EODINP,ABSEOSIN, BASOP, ABSBASONo results found for: PLT, HB, HCT, ALB, CA, TBILI, ALKPHOS, AST, GLUC, BUN,NA, K, CHLOR, CO2, ANION, ALTNo results found for: WSR, CRP, IGGIMAGING:Mentioned in the HPIEMG DATA:Mentioned in the HPIFormulation:04/09/2018 This is Alicia Canseco, a 42 year old female with a history offasciculations in different areas of her body without muscle bulk loss, musclepain, cramps or any symptoms suggestive of oculobulbar weakness such dysphagia,dyspnea, dysarthria/dysphonia, impaired mastication, facial weakness/droop,diplopia or ptosis. The patient does not report any other symptoms referrableto neurological focality or neuromuscular deficits. Neurological examinationshows brisk reflexes without any focal neurological deficits. MRI of the brainwas reported as normal. Regarding etiology to be determined: Likely benignfasciculations but we will obtain an EMG of the lower ext to rule out othercauses of fasciculations such ALS or muscle disease and amongst others.Of the 60 minutes long appointment visit, I spent at least 50% of pfniwoe-to-gqqi time in counseling, explanation of diagnosis and planning offurther management. This note was partially created using voice recognitionsoftware and is inherently subject to errors including those of syntax and sound-alike substitutions which may escape proofreading. In such instances,original meaning may be extrapolated by contextual derivation.Tisha Glynn Neurology and Neuroimmunology/Multiple SclerosisPager: [phone]:[phone] emb2017Referring Provider: JACQUE HANSON [[id number]]Allergies As of Date: 04/09/2018 Noted Allergy ReactionNEURONTIN (GABAPENTIN) 04/09/2018 8 - GI Upset Comments: Headache AND nauseaDate Reviewed: 04/09/2018Reviewed by: Buzz Oconnor Ma - Fully AssessedReason for Visit: New Patient [172] Cmt: new evalReason For Visit History RecordedPrimary Visit Diagnosis:Fasciculations [R25.3]Order(s):EMG(NEURO /NI) [[id number]] Order #: [id number]: 1 FUTUREProblem List As Of Date: 04/09/2018(None)Dispositi on: Return in about 3 months (around 07/09/2018).Follow-up and Disposition History RecordedLetter TextSchantell Nieves MD[address] [place], [place] [address]Uirwx: [phone]: [phone] 2017Jacque Hanson MD[address] [facility] [id number] Facsimile: [phone]: Alicia Canseco : [address] Hanson,Thank you for the opportunity to participate in the care of your patient John Canseco, who I saw at [facility] on 04/09/2018.GENERAL NEUROLOGY CONSULTMy Assessment and Plan are as follows:SubjectiveREASON FOR EVALUATION: Muscle twitching.HPI/CHIEF COMPLAINT:This is Ms. Alicia Canseco a 42 [facility] right [facility] patient had a histoecymy for abnormal pap smears and in 2 weeks shedevelop episodic left leg numbness and which took then disappaers in 5 to 6weeks and then disappeared. She also developed muscle twitching in her legsand they are non painful. She denies any muscle spasms but she would feel themuscle tiwtching in her biscpes and in her shoulder. The muscle tiwcing canoccur at night but she never feels the symptom waking her up from sleep. Shedenied any back pain, falling, dysphagia, dyspnea, dysarthria/dysphonia,impa ired mastication, facial weakness/droop, diplopia or ptosis. She is ableto perform all ADLs independently. These symptoms have not kept the patientaway from her job or impaired her work performance. MRI of the brain was doneand it was reported as a normal examination. She also had EMG of the upperext which was reported as mild CTS bilaterally per patient.FUNCTIONAL STATUS: IndependentNo past medical history on file.No past surgical history on file.No family history on file.Social HistorySubstance Use Topics- Smoking status: Never Smoker- Smokeless tobacco: Never Used- Alcohol use Not on fileALLERGIESAllergen Reactions- Neurontin [Gabapent* GI Upset Headache AND nauseaCOMPLETE REVIEW OF SYSTEMS:GENERAL: No fevers or irritability.HEENT: Negative for headaches, No problems with hearing or vision, no nosebleeds or other nasal problems.NECK: mild neck pain.RESPIRATORY: Negative for cough, wheezing or respiratory distress.CARDIOVASCULAR: Negative for chest pain, syncope, lightheadness or heartracing.GI: Negative for abdominal discomfort, blood in stools or black stools orchange in bowel habitsGU: No history of dysuria, frequency or incontinenceMUSCULOSKELET AL: Negative for joint pain or swelling, back pain or musclepain.SKIN: Negative for lesions, rash, and itching.NEURO: See HPIObjectivePHYSICAL EXAM:Vital Signs: BP 115/53 Pulse 69 Temp 98.9 Resp 16 Ht 5' 7 (1.70m) Wt 116 lb (52.6kg) SpO2 100% BMI 18.16 kg/(m2).General appearance: Well appearing, alert, in no acute distressSkin: Not examinedHead: NormocephalicNose/Sinuses : Not examinedOropharynx: Negative findings: tongue midline and normalNeck: Supple.Lungs: lungs clear to auscultationHeart: Negative findings: S1 normal, S2 normalCarotid Auscultation: Without bruitsAbdomen: Normal abdominal examExtremities: Negative findings: No cyanosis,or clubbing.Peripheral pulses: NormalNeurological Examination:Mental Status: Alert and Oriented to Place, Person, Time and Situation andPatient follows commands..Language: Is intact to Comprehension, Fluency and RepetitionCranial Nerves:CNII: Visual acuity normal, Visual mckoen full to confrontationCNIII, IV, : Pupils equal, round and reactive to light, full extraoccularmovements, without nystagmusCN V: Facial sensation intact bilaterally to fine touch and pinprick,masseter 5/5CN VII: Facial muscles symmetric and strongCN VIII: Hears finger rub well bilaterallyCN IX: Gag Reflex Not examinedCN X: Palate elevates symmetricallyCN XI: Full strength shoulder shrug bilaterallyCN XII: Tongue protrusion full and midlineNon-Dilated Fundiscopic Examination: Deferred ExaminationMotor Exam:Tone - Normal Tone noted in all extremitiesBulk - Normal bulk noted in all muscles tested.Inspection - Normal, no fasciculations or tremors noted.Power:MUSCLESUpper Extremity RIGHT LEFTDeltoid 11/18 5/5Biceps 11/18 5/5Triceps 11/185Wrist Extension 11/185Wrist Flexion 11/18 5/5Finger Flexion 11/18 5/5Finger Extension 11/18 5/5Finger Abd 11/18 5/5Finger Add 11/18 55MUSCLESLower Extremity RIGHT LEFTHip Flexion 11/18 5/5Hip Extension 11/18 55BiFem (Knee Flex) 11/185Quads (Knee Ext) 11/18 5/5Gastroc (Plantflx) 11/18 5/5TibAnt (Dorsiflx) 11/18 5/5TibPost (Ank Add) 11/18 5/5Ankle Eversion 11/18 5/5Ankle Inversion 11/18 5/5FlxHLong (Toe Flex) 11/18 5/5ExtHLong (Toe Ext) 11/18 5/5Sensory ExaminationSensation is intact to proprioception, light touch and vibratory sense.Reflexes Right LeftBicep 2/ 2/4Tricep 2/ 2/4BrRad / 2/4Knee 2/ 2/4Ankle / 2/4Plantar Response Downward response Downward responseHoffman Response Negative NegativeCoordination: Finger-to- nose-finger intact bilaterally.Gait: Patient's gait is normal, can heel and toe walk and can tandem walkRomberg: NegativeDATA:Diagnostic tests reviewed for today's visit:EMG and MRI estrada.BLOODWORK:No results found for: WBC, RBC, PLT, BUN, CREATNo results found for: NEUTP, ABSNEUT, LYMPHP, ABSLYMPH, ABSMONO, EODINP,ABSEOSIN, BASOP, ABSBASONo results found for: PLT, HB, HCT, ALB, CA, TBILI, ALKPHOS, AST, GLUC, BUN,NA, K, CHLOR, CO2, ANION, ALTNo results found for: WSR, CRP, IGGIMAGING:Mentioned in the HPIEMG DATA:Mentioned in the HPIAssessment AND Plan:This is Alicia Canseco, a 42 year old female with a history of fasciculationsin different areas of her body without muscle bulk loss, muscle pain, crampsor any symptoms suggestive of oculobulbar weakness such dysphagia, dyspnea,dysarthria/dyspho vazquez, impaired mastication, facial weakness/droop, diplopiaor ptosis. The patient does not report any other symptoms referrable toneurological focality or neuromuscular deficits. Neurological examinationshows brisk reflexes without any focal neurological deficits. MRI of thebrain was reported as normal. Regarding etiology to be determined: Likelybenign fasciculations but we will obtain an EMG of the lower ext to rule outother causes of fasciculations such ALS or muscle disease and amongst others.Of the 60 minutes long appointment visit, I spent at least 50% of [id number] time in counseling, explanation of diagnosis and planning offurther management. This note was partially created using voice recognitionsoftware and is inherently subject to errors including those of syntax and sound-alike substitutions which may escape proofreading. In suchinstances, original meaning may be extrapolated by contextual derivation.If you have any questions or need additional information, please feel free tocontact me.Thanks again for your kind referral.Best regards,Elena Nieves MDIf you would like your next patient report to be electronic, please considersigning up for [facility]'s Geovanna service. This is a complimentaryservice that enables you to view real-time information about the treatmentyour patients receive while at [facility]. To register online to [facility], simply log onto [email or web address] [email or web address] and click theregister button to begin. If you need assistance, please contact [employer] support at [phone] or [email or web address].Encount er Number: [id number] Status:Closed by ELENA NIEVES MD on 04/09/18 Normal [facility] PROGRESSon 04-09-2018 Protein mass conc HNO ID: [id number] thor: Elena Kimalenaice: (none)Author Type: PhysicianType: Progress NotesFiled: 04/09/2018 2:52 PMNote Text:HISTORY AND PHYSICAL EXAMINATION - GENERAL NEUROLOGYSERVICE DATE: 04/09/2018SERVICE TIME:PRIMARY CARE PHYSICIAN: OTIS GouldURRENT ATTENDING PROVIDER: No att. providers foundSubjectiveREASON FOR EVALUATION: muscle twitching.HPI/CHIEF COMPLAINT:This is Ms. Alicia Canseco a 42 year old right handed female who [facility]sto the [facility] with a chief complaint of muscle twitching.09/2017 patient had a histoecymy for abnormal pap smears and in 2 weeks shedevelop episodic left leg numbness and which took then disappaers in 5 to6 weeks and then disappeared. She also developed muscle twitching in herlegs and they are non painful. She denies any muscle spasms but she wouldfeel the muscle tiwtching in her biscpes and in her shoulder. The muscletiwcing can occur at night but she never feels the symptom waking her upfrom sleep. She denied any back pain, falling, dysphagia, dyspnea,dysarthria/dyspho vazquez, impaired mastication, facial weakness/droop,diplopia or ptosis. She is able to perform all ADLs independently. Thesesymptoms have not kept the patient away from her job or impaired her workperformance. MRI of the brain was done and it was reported as a normalexamination. She also had EMG of the upper ext which was reported as mildCTS bilaterally per patient.FUNCTIONAL STATUS: IndependentNo past medical history on file.No past surgical history on file.No family history on file.Social HistorySubstance Use Topics- Smoking status: Never Smoker- Smokeless tobacco: Never Used- Alcohol use Not on file(Not in a hospital admission)ALLERGIESAllerg en Reactions- Neurontin [Gabapent* GI Upset Headache AND nauseaCOMPLETE REVIEW OF SYSTEMS:GENERAL: No fevers or irritability.HEENT: Negative for headaches, No problems with hearing or vision, no nosebleeds or other nasal problems.NECK: mild neck pain.RESPIRATORY: Negative for cough, wheezing or respiratory distress.CARDIOVASCULAR: Negative for chest pain, syncope, lightheadness or heartracing.GI: Negative for abdominal discomfort, blood in stools or black stools orchange in bowel habitsGU: No history of dysuria, frequency or incontinenceMUSCULOSKELET AL: Negative for joint pain or swelling, back pain or musclepain.SKIN: Negative for lesions, rash, and itching.NEURO: See HPIObjectivePHYSICAL EXAM:Vital Signs: BP 115/53 Pulse 69 Temp 98.9 Resp 16 Ht 5' 7 (1.70m) Wt 116 lb (52.6kg) SpO2 100% BMI 18.16 kg/(m2).General appearance: Well appearing, alert, in no acute distressSkin: Not examinedHead: NormocephalicNose/Sinuses : Not examinedOropharynx: Negative findings: tongue midline and normalNeck: Supple.Lungs: lungs clear to auscultationHeart: Negative findings: S1 normal, S2 normalCarotid Auscultation: Without bruitsAbdomen: Normal abdominal examExtremities: Negative findings: No cyanosis,or clubbing.Peripheral pulses: NormalNeurological Examination:? Mental Status: Alert and Oriented to Place, Person, Time and Situationand Patient follows commands..? Language: Is intact to Comprehension, Fluency and RepetitionCranial Nerves:CNII: Visual acuity normal, Visual mckeon full to confrontationCNIII, IV, : Pupils equal, round and reactive to light, fullextraoccular movements, without nystagmusCN V: Facial sensation intact bilaterally to fine touch and pinprick,masseter 5/5CN VII: Facial muscles symmetric and strongCN VIII: Hears finger rub well bilaterallyCN IX: Gag Reflex Not examinedCN X: Palate elevates symmetricallyCN XI: Full strength shoulder shrug bilaterallyCN XII: Tongue protrusion full and midline? Non-Dilated Fundiscopic Examination: Deferred Examination? Motor Exam:1. Tone - Normal Tone noted in all extremities2. Bulk - Normal bulk noted in all muscles tested.3. Inspection - Normal, no fasciculations or tremors noted.4. Power:MUSCLESUpper Extremity RIGHT LEFTDeltoid 5/5 5/5Biceps 5/5 5/5Triceps 5/5 5/5Wrist Extension 5/5 5/5Wrist Flexion 5/5 5/5Finger Flexion 5/5 5/5Finger Extension 5/5 5/5Finger Abd 5/5 5/5Finger Add 5/5 55MUSCLESLower Extremity RIGHT LEFTHip Flexion 11/18 5/5Hip Extension 11/18 5/5BiFem (Knee Flex) 11/185Quads (Knee Ext) 11/18 5/5Gastroc (Plantflx) 11/18 5/5TibAnt (Dorsiflx) 11/18 5/5TibPost (Ank Add) 11/18 55Ankle Eversion 11/18 5/5Ankle Inversion 11/18 5/5FlxHLong (Toe Flex) 11/18 5/5ExtHLong (Toe Ext) 11/18 11/18? Sensory ExaminationSensation is intact to proprioception, light touch and vibratory sense.? Reflexes Right LeftBicep 08/20 08/20Tricep 08/20/4BrRad 08/20 08/20Knee 08/204Ankle 08/20 08/20Plantar Response Downward response Downward responseHoffman Response Negative Negative? Coordination: Finger-to- nose-finger intact bilaterally.? Gait: Patient's gait is normal, can heel and toe walk and can tandemwalk? Romberg: NegativeDATA:Diagnostic tests reviewed for today's visit:EMG and MRI estrada.BLOODWORK:No results found for: WBC, RBC, PLT, BUN, CREATNo results found for: NEUTP, ABSNEUT, LYMPHP, ABSLYMPH, ABSMONO, EODINP,ABSEOSIN, BASOP, ABSBASONo results found for: PLT, HB, HCT, ALB, CA, TBILI, ALKPHOS, AST, GLUC,BUN, NA, K, CHLOR, CO2, ANION, ALTNo results found for: WSR, CRP, IGGIMAGING:Mentioned in the HPIEMG DATA:Mentioned in the HPIFormulation:04/09/2018 This is Alicia Canseco, a 42 year old female with a history offasciculations in different areas of her body without muscle bulk loss,muscle pain, cramps or any symptoms suggestive of oculobulbar weaknesssuch dysphagia, dyspnea, dysarthria/dysphonia, impaired mastication,facial weakness/droop, diplopia or ptosis. The patient does not report anyother symptoms referrable to neurological focality or neuromusculardeficits. Neurological examination shows brisk reflexes without any focalneurological deficits. MRI of the brain was reported as normal. Regardingetiology to be determined: Likely benign fasciculations but we will obtainan EMG of the lower ext to rule out other causes of fasciculations suchALS or muscle disease and amongst others.Of the 60 minutes long appointment visit, I spent at least 50% of dycaosy-iv-uqir time in counseling, explanation of diagnosis and planning offurther management. This note was partially created using voicerecognition software and is inherently subject to errors including thoseof syntax and sound-alike substitutions which may escape proofreading.In such instances, original meaning may be extrapolated by contextualderivation.Tisha Medeiros Neurology and Neuroimmunology/Multiple SclerosisPager: [phone]:[phone] emb2017 Normal [facility] MR-MR head/brain wo/w con IM PORTon 02-19-2018 MR-MR head/brain wo/w con IMPORT Images were obtained outside of [facility] [id number] Normal [facility] Vital Signs Date Time Vital Sign Value Performing Clinician Facility 03-13-2025 10:19-0400 Body mass index (BMI) [Ratio] 30.47 kg/m2 Kit Andrea DO Work Phone: [facility] 03-13-2025 10:190400 Body weight 85.64 kg Kit Andrea DO Work Phone: [facility] 03-13-2025 10:19-0400 Diastolic blood pressure 74 mm[Hg] Kit Andrea DO Work Phone: [facility] 03-13-2025 10:19-0400 Systolic blood pressure 116 mm[Hg] Kit Andrea DO Work Phone: [facility] 12-26-2024 09:04-040 Body height 167.6 cm Tima Lugo MD, [facility] Work Phone: [facility] 12-26-2024 09:04-0400 Body mass index (BMI) [Ratio] 30.8 kg/m2 Tima Lugo MD, IBCLC Work Phone: [facility] 12-26-2024 09:04-0400 Body temperature 97.2 [degF] Tima Lugo MD, IBCLC Work Phone: [facility] 12-26-2024 09:04-0400 Body weight 86.55 kg Tima Lugo MD, IBCLC Work Phone: [facility] 12-26-2024 09:04-0400 Diastolic blood pressure 72 mm[Hg] Tima Lugo MD, IBCLC Work Phone: [facility] 12-26-2024 09:04-0400 Heart rate 82 /min Tima Lugo MD, IBCLC Work Phone: [facility] 12-26-2024 09:04-0400 SaO2% (BldA) [Mass fraction] 98 % Tima Lugo MD, IBCLC Work Phone: [facility] 12-26-2024 09:04-0400 Systolic blood pressure 122 mm[Hg] Tima Lugo MD, IBCLC Work Phone: [facility] 06-06-2024 08:51-0500 Body height 168.9 cm Jacque Hanson MD Work Phone: [facility] 06-06-2024 08:51-0500 Body mass index (BMI) [Ratio] 29.89 kg/m2 Jacque Hanson MD Work Phone: [facility] 06-06-2024 08:51-0500 Body temperature 96.69 [degF] Jacque Hanson MD Work Phone: [facility] 06-06-2024 08:51-0500 Body weight 85.28 kg Jacque Hanson MD Work Phone: [facility] 06-06-2024 08:51-0500 Diastolic blood pressure 68 mm[Hg] Jacque Hanson MD Work Phone: [facility] 06-06-2024 08:51-0500 Heart rate 73 /min Jacque Hanson MD Work Phone: [facility] 06-06-2024 08:51-0500 Respiratory rate 17 /min Jacque Hanson MD Work Phone: [facility] 06-06-2024 08:51-0500 SaO2% (BldA) [Mass fraction] 97 % Jacque Hanson MD Work Phone: [facility] 06-06-2024 08:51-0500 Systolic blood pressure 124 mm[Hg] Jacque Hanson MD Work Phone: [facility] 05-30-2024 09:51-0500 Body height 170.18 cm Jacque Hanson MD Work Phone: [facility] 05-30-2024 09:51-0500 Body mass index (BMI) [Ratio] 27.9 kg/m2 Jacque Hanson MD Work Phone: [facility] 05-30-2024 09:51-0500 Body temperature 98.2 [degF] Jacque Hanson MD Work Phone: [facility] 05-30-2024 09:51-0500 Body weight 81 kg Jacque Hanson MD Work Phone: [facility] 05-30-2024 09:51-0500 Diastolic blood pressure 68 mm[Hg] Jacque Hanson MD Work Phone: [facility] 05-30-2024 09:51-0500 Heart rate 84 /min Jacque Hanson MD Work Phone: [facility] 05-30-2024 09:51-0500 Respiratory rate 16 /min Jacque Hanson MD Work Phone: [facility] 05-30-2024 09:51-0500 SaO2% (BldA) [Mass fraction] 98 % Jacque Hanson MD Work Phone: [facility] 05-30-2024 09:51-0500 Systolic blood pressure 108 mm[Hg] Jacque Hanson MD Work Phone: [facility] 03-12-2024 13:12-0400 Body height 167.6 cm Jacque Hanson MD Work Phone: [facility] 03-12-2024 13:12-0400 Body mass index (BMI) [Ratio] 29.7 kg/m2 Jacque Hanson MD Work Phone: [facility] 03-12-2024 13:12-0400 Body temperature 97.9 [degF] Jacque Hanson MD Work Phone: [facility] 03-12-2024 13:12-0400 Body weight 83.46 kg Jacque Hanson MD Work Phone: [facility] 03-12-2024 13:12-0400 Diastolic blood pressure 76 mm[Hg] Jacque Hanson MD Work Phone: [facility] 03-12-2024 13:12-0400 Heart rate 99 /min Jacque Hanson MD Work Phone: [facility] 03-12-2024 13:12-0400 SaO2% (BldA) [Mass fraction] 99 % Jacque Hanson MD Work Phone: [facility] 03-12-2024 13:12-0400 Systolic blood pressure 122 mm[Hg] Jacque Hanson MD Work Phone: [facility] 09-07-2023 10:46-0500 Body height 170.18 cm MD Jacque Hanson Work Phone: [facility] 09-07-2023 10:46-0500 Body mass index (BMI) [Ratio] 28.1 kg/m2 MD Jacque Hanson Work Phone: [facility] 09-07-2023 10:46-0500 Body temperature 97.8 [degF] MD Jacque Hanson Work Phone: [facility] 09-07-2023 10:46-0500 Body weight 81.64 kg MD Jacque Hanson Work Phone: [facility] 09-07-2023 10:46-0500 Diastolic blood pressure 62 mm[Hg] MD Jacqeu Hanson Work Phone: [facility] 09-07-2023 10:46-0500 Heart rate 71 /min MD Jacque Hanson Work Phone: [facility] 09-07-2023 10:46-0500 SaO2% (BldA) [Mass fraction] 98 % MD Jacque Hanson Work Phone: [facility] 09-07-2023 10:46-0500 Systolic blood pressure 110 mm[Hg] MD Jacque Hanson Work Phone: [facility] 03-17-2023 09:00-0400 Body height 170.18 cm Diane Peraza Other [employer] Other 03-17-2023 09:00-0400 Body mass index (BMI) [Ratio] 28.19 kg/m2 Diane Karmen Other [employer] Other 03-17-2023 09:00-0400 Body temperature 97.8 [degF] Diane Johnsonanayeli Other [employer] Other 03-17-2023 09:00-0400 Body weight 81.65 kg Diane Johnsonanayeli Other [employer] Other 03-17-2023 09:00-0400 Diastolic blood pressure 66 mm[Hg] Diane Peraza Other [employer] Other 03-17-2023 09:00-0400 SaO2% (BldA) [Mass fraction] 99 % Diane Peraza Other [employer] Other 03-17-2023 09:00-0400 Systolic blood pressure 112 mm[Hg] Diane Peraza Other [facility] [employer] Other Encounters Encounter Date Encounter Type Care Provider Facility Start: 03-13-2025 End: 03-13-2025 Bamboo flowsheet Kit Andrea DO Work Phone: [facility] Start: 03-13-2025 End: 03-13-2025 Bamboo flowsheet Kit Andrea DO Work Phone: [facility] Start: 03-13-2025 End: 03-13-2025 Patient encounter procedure Kit Andrea DO Work Phone: [facility] Work Phone: Start: 03-13-2025 End: 03-13-2025 Periodic preventive med est patient 40-64yrs Kit Andrea DO Work Phone: [facility] Comment on above: Well woman exam with routine gynecological exam; Breast cancer screening by mammogram; Postmenopausal state Start: 12-26-2024 End: 12-26-2024 Bamboo flowsbrandee Lugo MD, IBCLC Work Phone: [facility] Start: 12-26-2024 End: 12-26-2024 Bamboo flowsbrandee Lugo MD, IBCLC Work Phone: [facility] Start: 12-26-2024 End: 12-26-2024 Office outpatient visit 15 minutes Tima Lugo MD, IBCLC [facility] Comment on above: Acute bacterial sinu sitis (Primary Dx) Start: 12-26-2024 End: 12-26-2024 ambulatory TIMA LUGO Not Available Start: 06-17-2024 End: 06-17-2024 ambulatory JACQUE M KETVERTIS Not Available Start: 06-12-2024 End: 06-12-2024 ambulatory JACQUE M KETVERTIS Not Available Start: 06-06-2024 End: 06-06-2024 Bamboo flowsheet Jacque Hansno MD Work Phone: [facility] Start: 06-06-2024 End: 06-06-2024 Bamboo flowsheet Jacque Hanson MD Work Phone: [facility] Start: 06-06-2024 Encounter for genera l adult medical examination without abnormal findings Jacque Hanson [facility] Start: 06-06-2024 End: 06-06-2024 Patient encounter status Jacque Hanson MD Work Phone: [facility] Work Phone: Start: 06-06-2024 End: 06-06-2024 Periodic preventive med est patient 40-64yrs Jacque Hanson MD Work Phone: [facility] Comment on above: Well adult exam (Ruth braydon Dx); Varicose veins of bilateral lower extremities with pain; Thyroid nodule (CMS/HCC); Chronic sinusitis, unspecified location Start: 06-06-2024 End: 06-06-2024 ambulatory Jacque Hanson Facility:[facility] Start: 05-30-2024 End: 05-30-2024 ambulatory Jacque Hanson MD Work Phone: [facility] Work Phone: Start: 05-30-2024 End: 05-30-2024 Patient encounter procedure Jacque Hanson MD Work Phone: [facility] Work Phone: Start: 05-10-2024 End: 05-10-2024 Patient encounter procedure Jacque Hanson MD Work Phone: [facility] Start: 05-10-2024 End: 05-10-2024 ambulatory Diane Peraza Facility:[facility] Start: 05-03-2024 End: 05-03-2024 Patient encounter procedure MD Jacque Hanson Work Phone: [facility] V[facility] Surgery Work Phone: Start: 05-03-2024 End: 05-03-2024 ambulatory MD Jacque Hanson Work Phone: [facility] Work Phone: Start: 04-26-2024 End: 04-26-2024 ambulatory MD Jacque Hanson Work Phone: [facility] Work Phone: Start: 04-26-2024 End: 04-26-2024 Patient encounter procedure MD Jacque Hanson Work Phone: [facility] Physician [facility] Vascular Surgery Work Phone: Start: 03-28-2024 End: 03-28-2024 ambulatory MD Jacque Hanson Work Phone: [facility] Work Phone: Start: 03-28-2024 End: 03-28-2024 Patient encounter procedure MD Jacque Hanson Work Phone: [facility] Work Phone: Start: 03-12-2024 End: 03-12-2024 Bamboo flowsheet Jacque Hanson MD Work Phone: [facility] Start: 03-12-2024 End: 03-12-2024 Bamboo flowsheet Jacque Hanson MD Work Phone: [facility] Start: 03-12-2024 End: 03-12-2024 Office outpatient visit 15 minutes Jacque Hanson MD Work Phone: [facility] Comment on above: Insect bite of lower leg, unspecified laterality, initial encounter (Primary Dx) Start: 03-12-2024 End: 03-12-2024 ambulatory JACQUE HANSON Not Available Start: 02-29-2024 End: 03-06-2024 Clinisync Result Encounter Kit Andrea DO Work Phone: [facility] Unsolic[facility] Start: 02-29-2024 End: 03-06-2024 Clinisync Result Encounter Kit Mendez DO Work Phone: [facility]solic[facility] Start: 02-29-2024 End: 02-29-2024 ambulatory KIT MENDEZ Not Available Start: 11-13-2023 End: 11-13-2023 Patient encounter procedure MD Jacque Hanson Work Phone: [facility] Start: 11-13-2023 End: 11-13-2023 ambulatory MD Jacque Hnason Work Phone: [facility] Work Phone: Start: 11-03-2023 End: 11-03-2023 ambulatory MD Jacque Hanson Work Phone: [facility] Work Phone: Start: 11-03-2023 End: 11-03-2023 Patient encounter procedure MD Jacque Hanson Work Phone: [facility] Physician [facility] Vascular Surgery Work Phone: Start: 10-06-2023 End: 10-06-2023 ambulatory MD Jacque Hanson Work Phone: [facility] Work Phone: Start: 10-06-2023 End: 10-06-2023 Patient encounter procedure MD Jacque Hanson Work Phone: [facility] Physician [facility] Vascular Surgery Work Phone: Start: 09-07-2023 End: 09-07-2023 ambulatory MD Jacque Hanson Work Phone: [facility] Work Phone: Start: 09-07-2023 End: 09-07-2023 Patient encounter procedure MD Jcaque Hanson Work Phone: [facility] Physician [facility] Vascular Surgery Work Phone: Start: 08-21-2023 End: 08-21-2023 Patient encounter procedure MD Jacque Hanson Work Phone: [facility] Start: 08-21-2023 End: 08-21-2023 ambulatory MD Jacque Hanson Work Phone: [facility] Work Phone: Start: 08-07-2023 End: 08-07-2023 Patient encounter procedure MD Jacque Hanson Work Phone: [facility] Start: 08-07-2023 End: 08-07-2023 ambulatory MD Jacque Hanson Work Phone: [facility] Work Phone: Start: 04-06-2023 End: 04-06-2023 ambulatory MD Jacque Hanson Work Phone: [facility] Work Phone: Start: 04-06-2023 End: 04-06-2023 Patient encounter procedure MD Jacque Hanson Work Phone: [facility] Start: 03-17-2023 End: 03-17-2023 ambulatory Diane Peraza Other [facility] [employer] Other Start: 03-17-2023 [facility] new patient Diane Johnsonchristine polo [facility] Start: 03-16-2023 End: 03-16-2023 ambulatory MD Jacque Hanson Work Phone: [facility] Work Phone: Start: 03-16-2023 End: 03-16-2023 Patient encounter procedure MD Jacque Hanson Work Phone: [facility] Work Phone: Start: 09-09-2022 End: 09-09-2022 ambulatory MD Jacque Hanson Work Phone: [facility] Work Phone: Start: 09-09-2022 End: 09-09-2022 Patient encounter procedure MD Jacque Hanson Work Phone: [facility] Work Phone: Start: 02-20-2022 Encounter for gynecological examination (general) (routine) without abnormal findings DR KIT MENDEZ [facility] Start: 02-17-2022 End: 02-17-[address] KIT MENDEZ Facility:[facility] Start: 02-17-2022 End: 02-17-2022 Encounter for gynecological examination (general) (routine) without abnormal findings DR KIT EMNDEZ Facility:[facility] Start: 05-03-2018 End: 05-03-2018 [facility] Start: 04-09-2018 End: 04-09-2018 [facility] Procedures Date Procedure Procedure Detail Performing Clinician Start: 06-06-2024 Comprehensive metabo lic panel Jacque Hanson MD Work Phone: Start: 06-06-2024 HEMOGRAM CBC WITHOUT DIFF ([facility]) Jacque Hanson MD Work Phone: Start: 06-06-2024 Lipid panel Jacque mcmanus MD Work Phone: Start: 05-10-2024 Duplex scan of lower limb veins Jacque Hanson MD Work Phone: Start: 03-28-2024 End: 03-28-2024 Screening mammography of bilateral breasts MD Jacque Hanson Work Phone: Start: 02-29-2024 IGP,APTIMA HPV,AGE GDLN Kit Mendez DO Work Phone: Start: 08-21-2023 Duplex scan of lower limb veins MD Jacque Hanson Work Phone: Start: 08-07-2023 Duplex scan of lower limb veins MD Jacque Hanson Work Phone: Start: 03-21-2023 Mammography Kit Fazi o DO Work Phone: Start: 03-16-2023 Bilateral mammography M D Jacque Hanson Work Phone: Start: 03-16-2023 Ultrasonography of b ilateral breasts MD Jacque Hanson Work Phone: Start: 09-09-2022 Screening mammograph y of bilateral breasts MD Jacque Hanson Work Phone: Start: 04-25-2022 Colonoscopy Kit Fazi o DO Work Phone: Plan of Treatment Date Care Activity Detail Author Start: 04-25-2032 Screening for malign ant neoplasm of colon [facility] Start: 03-19-2026 End: 03-19-2026 Patient encounter procedure 03/19/2026 9:00 AM EDT Procedure Visit [facility] [address] [place] [id number] Kit Mendez, DO [address] [place] [address] [facility] Start: 03-28-2025 Screening for malign ant neoplasm of breast Mammogram [facility] Start: 03-17-2025 Influenza vaccination [facility] Start: 03-13-2025 End: 03-13-2026 DXA Skeletal system Views for bone density DEXA bone density Imaging Routine Postmenopausal state Expected: 03/13/2025 (Approximate), Expires: 03/13/2026 [facility] Comment on above: Expected: 03/13/2025 (Approximate), Expires: 03/13/2026 Start: 03-13-2025 End: 05-13-2026 MG Breast - bilateral Screening Bilateral screening mammogram Imaging Routine Breast cancer screening by mammogram Expected: 03/13/2025, Expires: 05/13/2026 [facility] Work Phone: Comment on above: Expected: 03/13/2025 , Expires: 05/13/2026 Start: 03-13-2025 End: 03-13-2025 Patient encounter procedure [facility] Comment on above: Arrived Start: 12-26-2024 End: 12-26-2024 Patient encounter procedure 12/26/2024 9:00 AM EDT Office Visit [facility] [address] [place] [phone] Tima Lugo MD, IBCLC [address] [address] Arrived [facility] Comment on above: Arrived Start: 06-12-2024 End: 06-12-2024 Professional / ancillary services management 06/12/2024 4:00 PM EST Ancillary Procedure [facility] [address] [place] [phone] [facility] Start: 06-06-2024 End: 06-06-2025 US Thyroid gland US thyroid Imaging Routine Thyroid nodule (CMS/HCC) Expected: 06/06/2024, Expires: 06/06/2025 [facility] Work Phone: Comment on above: Expected: 06/06/2024 , Expires: 06/06/2025 Start: 06-06-2024 End: 06-06-2024 Patient encounter procedure 06/06/2024 9:00 AM EST Office Visit [facility] [address] [place] [address] Jacque Hanson MD [address] [place] [address] [facility] on above: Arrived Start: 03-21-2024 Screening for malign ant neoplasm of breast Mammogram [facility] Start: 03-17-2024 Influenza vaccination Influenza Vacc ine (#1) [facility] Start: 03-12-2024 End: 03-12-2024 Patient encounter procedure 03/12/2024 1:20 PM EDT Office Visit [facility] [address] [place] [address] Jacque Hanson MD [address] [place] [address] Arrived [facility] Comment on above: Arrived Start: 11-13-2023 Duplex scan of lower limb veins US venous duplex LE [facility] Start: 08-21-2023 Duplex scan of lower limb veins US venous duplex LE LT [facility] Start: 08-21-2023 US Lower extremity v ein - left [facility] Start: 08-07-2023 Duplex scan of lower limb veins US venous duplex LE RT [facility] Start: 08-07-2023 US Lower extremity v ein - right [facility] Start: 04-06-2023 Duplex scan of lower limb veins US venous duplex LE BI [facility] Start: 04-06-2023 US Lower extremity v ein - bilateral [facility] Start: 1975 Screening for malign ant neoplasm of colon [facility] THIN PREP TIS PAP AN D HR HPV DNA THIN PREP TIS PAP AND HR HPV DNA Pathology and Cytology Routine Well woman exam with routine gynecological exam Ordered: 03/13/2025 [facility] Comment on above: Ordered: 03/13/2025 Immunizations Immunization Date Immunization Notes Care Provider [facility] 05-12-2017 Influenza, injectabl e, Madin Negrita Canine Kidney, preservative free, quadrivalent Kit Andrea DO Work Phone: [facility] 05-12-2017 influenza virus vacc ine, unspecified formulation Kit Andrea DO Work Phone: [facility] 07-14-2016 influenza, injectabl e, quadrivalent, contains preservative Kit Andrea DO Work Phone: [facility] Payers Date Payer Category Payer Self-pay [id number] 2020 [facility] Shield BC[employer] [id number] 2020 Unknown BCBS BCBS [id number] 2020-Present [phone] [address] [place] [address] [id number] 1974 Unknown [id number] [id number] .2.593 1974 Unknown [id number] [id number] .2.1258 1974 Unknown [id number] [id number] .2.1258 1974 Unknown [id number] 2.16.840.1.472395.3.579 .2.1258 1974 Unknown [id number] 2.16.840.1.215949.3.579 .2.1258 1974 Unknown [id number] 2.16.840.1.641806.3.579 .2.1258 1974 Unknown [id number] [id number] .2.1259 1959 Unknown [id number] Private Health Insurance [employer] [id number] Unknown [id number] [id number] .2.531 Unknown [id number] 2.16.840.1.617952.3.579 .2.531 Unknown [id number] 2.0.1.826400.3.579 .2.531 Unknown [id number] 2.0.1.528979.3.579 .2.531 Unknown [id number] 2.0.1.321091.3.579 .2.531 Unknown [id number] 2.0.1.377477.3.579 .2.531 Unknown [id number] [id number] .2.531 Social History Date Type Detail Facility Tobacco smoking stat us CTIS Unknown if ever smoked [facility] Work Phone: Start: 1975 Sex Assigned At Female F [facility] Start: 02-01-2023 End: 03-12-2024 Sex Assigned At [facility] Start: 02-02-2023 End: 04-13-2023 Tobacco smoking status CTIS Never smoked tobacco (finding) [facility] Start: 05-30-2024 Sex Female (finding) [facility] Start: 02-02-2023 Tobacco use and exposure Smoke less tobacco non-user [facility] Start: 03-12-2024 End: 12-26-2024 Alcoholic beverage intake Current drinker of alcohol (finding) [facility] Start: 02-01-2023 End: 03-12-2024 Alcoholic beverage intake [facility] How often do you nee d to have someone help you when you read instructions, pamphlets, or other written material from your doctor or pharmacy [SILS] Never [facility] Within the last year , have you been afraid of your partner or ex-partner? No [facility] Are you now , , , , never or living with a partner? [facility] How often to you hav e a drink containing alcohol? 2-4 times a month [facility] How many standard dr inks containing alcohol do you have on a typical day? 1 or 2 [facility] How often do you hav e 6 or more drinks on 1 occasion? Never [facility] Do you feel stress - tense, restless, nervous, or anxious, or unable to sleep at night because your mind is troubled all the time - these days [OSQ] Only a little [facility] (I/We) worried wheth er (my/our) food would run out before (I/we) got money to buy more. Never true [facility] Start: 02-02-2023 Alcohol Comment caffeine: 1-2 cups per day coffee, soda, tea [facility] Start: 1975 Sex assigned at Not on file [facility] Do you belong to any clubs or organizations such as oriental orthodox groups, unions, fraternal or athletic groups, or school groups? Yes [facility] How often to you hav e a drink containing alcohol? 2-3 time sa week [facility] Clinical Notes 09-14-2017 to 03-13-2025 ONEIL Brower - 03/13/2025 10:00 AM Tatianna Lugo MD, IBCLC - 12/26/2024 9:00 AM Bharath Hanson MD - 06/06/2024 9:00 AM Phoebe Hanson MD - 03/12/2024 1:20 PM EDT Note Date & Type Note Facility 03-13-2025 History of Presen t illness Narrative Reason for Appointment: Patient ID: Alicia Canseco is a 49 y.o. female who presents for Well Women Visit Patient presents today for Annual Exam. MEDICATIONS Current Outpatient Medications Medication Instructions pimecrolimus (Elidel) 1 % cream APPLY A THIN LAYER TO AFFECTED AREAS ON FACE ONCE A DAY NEEDED FOR FLARES ALLERGIES Allergies Allergen Reactions Gabapentin Headache PROBLEMS Active Ambulatory Problems Diagnosis Date Noted Fibrocystic breast changes 01/30/2023 Muscle twitching 01/30/2023 Thyroid nodule 01/30/2023 Varicose veins of bilateral lower extremities with pain 01/30/2023 Hot flashes due to menopause 11/14/2022 Resolved Ambulatory Problems Diagnosis Date Noted Abnormal swallowing 01/30/2023 Anxiety 01/30/2023 Bronchitis 01/30/2023 Burning sensation of rectum 01/30/2023 Chronic maxillary sinusitis 01/30/2023 Chronic sinusitis 01/30/2023 Cough 01/30/2023 Mild acid reflux 01/30/2023 Wheezing 01/30/2023 Abnormal involuntary movement 12/07/2017 History of Lyme disease 12/07/2017 Skin sensation disturbance 12/20/2018 Past Medical History: Diagnosis Date Allergic seasonal Breast lump Chicken pox COVID-19 Family history of cancer GERD (gastroesophageal reflux disease) 2020 HPV (human papilloma virus) anogenital infection Irregular menses LGSIL of cervix of undetermined significance Miscarriage (HHS-HCC) HISTORY PAST MEDICAL HISTORY SOCIAL HISTORY Past Medical History: Diagnosis Date Allergic seasonal Breast lump Chicken pox COVID-19 Family history of cancer GERD (gastroesophageal reflux disease) 2020 HPV (human papilloma virus) anogenital infection Irregular menses LGSIL of cervix of undetermined significance Miscarriage (HHS-HCC) Social History Tobacco Use Smoking status: Never Smokeless tobacco: Never Substance Use Topics Alcohol use: Yes Alcohol/week: 2.0 standard drinks of alcohol Types: 2 Glasses of wine per week Comment: caffeine: 1-2 cups per day coffee, soda, tea Drug use: Never FAMILY HISTORY Family History Problem Relation Name Age of Onset No Known Problems Sister Breast cancer Maternal Grandmother Laura Breast cancer Mother's Sister Megha Colon cancer Neg Hx Ovarian cancer Neg Hx SURGICAL HISTORY Past Surgical History: Procedure Laterality Date CERVICAL BIOPSY W/ LOOP ELECTRODE EXCISION 02/2017 COLONOSCOPY 2021 HYSTERECTOMY 09/2017 PAP SMEAR 07/13/2017 VARICOSE VEIN SURGERY 08/2023 REVIEW OF SYSTEMS Review of Systems: Review of Systems Constitutional: Negative. HENT: Negative. Eyes: Negative. Respiratory: Negative. Cardiovascular: Negative. Gastrointestinal: Negative. Genitourinary: Negative. Musculoskeletal: Negative. Skin: Negative. Neurological: Negative. All other systems reviewed and are negative. Hematological: Negative. Endocrine: Negative. Allergic/Immunologic: Negative. OBJECTIVE Objective: Physical Exam Constitutional: Appearance: Normal appearance. Genitourinary: Right Adnexa: not tender and no mass present. Left Adnexa: not tender and no mass present. No cervical discharge. Breasts: Breasts are soft. Right: Normal. Left: Normal. HENT: Head: Normocephalic. Nose: Nose normal. Mouth/Throat: Mouth: Mucous membranes are moist. Cardiovascular: Rate and Rhythm: Normal rate. Pulmonary: Effort: Pulmonary effort is normal. Abdominal: General: Bowel sounds are normal. Palpations: Abdomen is soft. Musculoskeletal: General: Normal range of motion. Cervical back: Normal range of motion. Neurological: General: No focal deficit present. Mental Status: She is alert. Skin: General: Skin is warm and dry. Psychiatric: Mood and Affect: Mood normal. Vitals and nursing note reviewed. Exam conducted with a jewelry bench worker present. Vitals: Estimated body mass index is 30.47 kg/m as calculated from the following: Height as of 12/26/24: 5' 6 . Weight as of this encounter: 188 lb 12.8 oz. BP: 116/74 No LMP recorded. Patient has had a hysterectomy. ASSESSMENT & PLAN ICD-10-CM 1. Well woman exam with routine gynecological exam Z01.419 THIN PREP TIS PAP AND HR HPV DNA 2. Breast cancer screening by mammogram Z12.31 Bilateral screening mammogram Bilateral screening mammogram 3. Postmenopausal state Z78.0 DEXA bone density Annual Exam: Patient presents today for an annual exam. Patient states she is doing well and has no complaints. Pap was obtained without difficulty. Orders Placed This Encounter Procedures Bilateral screening mammogram DEXA bone density Follow Up: Patient is to return in one year for annual unless needed otherwise. Documented by ONEIL Brower on behalf of: Kit Mendez DO documented in this encounter [facility] 12-26-2024 History of Presen t illness Narrative Images from the original note were not included. Alicia Canseco is a 49 y.o. female here today for sinus issues SUBJECTIVE: History Provided by: patient History of Present Illness The patient came in to get checked out for a sore throat. She mentioned that last Monday she woke up with a sore throat and thought it might be because she was breathing through her mouth at night or due to allergies. She took an allergy pill and went to work, but by Monday, she had gone through a whole box of tissues because her nose was dripping so much. Now, she feels like the mucus is stuck at the back of her throat, making it feel tender. She hasn't had any fever or chills but felt pretty sluggish on Monday and Monday. She has been coughing at night and constantly clearing her throat. 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 She doesn't have any typical allergy symptoms like a runny nose or itchy eyes. She doesn't have any ear pain or pressure, except for a hole in her right eardrum that she already knew about. She hasn't used any nasal sprays recently, but she remembers that azelastine, prescribed by Dr. Mccarthy, helped her more than Flonase. She has taken Augmentin before without any problems. She tried using Mucinex and other [id number] medications, but she's still dealing with the mucus and throat clearing. Current Outpatient Medications Medication Instructions pimecrolimus (Elidel) 1 % cream APPLY A THIN LAYER TO AFFECTED AREAS ON FACE ONCE A DAY NEEDED FOR FLARES I have reviewed and reconciled the history, allergies, family history, social history, and medication list with the patient today. OBJECTIVE: BP 122/72 Pulse 82 Temp 97.2 F Ht 5' 6 Wt 190 lb 12.8 oz SpO2 98% BMI 30.80 kg/m Physical Exam Constitutional: General: She is not in acute distress. Appearance: Normal appearance. HENT: Head: Normocephalic and atraumatic. Right Ear: Tympanic membrane, ear canal and external ear normal. Left Ear: Tympanic membrane, ear canal and external ear normal. Nose: Congestion and rhinorrhea present. Right Turbinates: Swollen. Left Turbinates: Swollen. Right Sinus: Maxillary sinus tenderness and frontal sinus tenderness present. Left Sinus: Maxillary sinus tenderness and frontal sinus tenderness present. Mouth/Throat: Mouth: Mucous membranes are moist. Pharynx: Oropharynx is clear. Posterior oropharyngeal erythema present. Eyes: Conjunctiva/sclera: Conjunctivae normal. Cardiovascular: Rate and Rhythm: Normal rate and regular rhythm. Heart sounds: Normal heart sounds. No murmur heard. No friction rub. No gallop. Pulmonary: Effort: Pulmonary effort is normal. No respiratory distress. Breath sounds: Normal breath sounds. No wheezing, rhonchi or rales. Musculoskeletal: Cervical back: Normal range of motion. Lymphadenopathy: Cervical: No cervical adenopathy. Neurological: Mental Status: She is alert. ASSESSMENT AND PLAN: Assessment & Plan Acute bacterial sinusitis Classic sinusitis symptoms persisting longer than 1 week . Recommend antibiotic treatment. She has tolerated Augmentin in the past. Recommend 5 days of treatment. If symptoms persist on day 5, complete the full 10 day course. Use Flonase or Nasacort to help with PND. Consider probiotic to reduce risk of antibiotic associated diarrhea. Reviewed return precautions. Orders: amoxicillin-clavulanate (Augmentin) 875-125 MG tablet; Take 1 tablet (875 mg) by mouth in the morning and 1 tablet (875 mg) before bedtime. Do all this for 10 days. Tima Lugo MD, IBCLC [facility] documented in this encounter [facility] 06-06-2024 History of Presen t illness Narrative Alicia Canseco is a 48 y.o. female presents with chief complaint of No chief complaint on file. HPI: History of Present Illness The patient is a 48-year-old female who presents for a well exam. She has undergone five sclerotherapy treatments for her foot, which she reports as being more painful than the others. The treatment was performed due to the superficial nature of the issue. She also had three treatments on her right leg and two on her left. The last treatment was completed on 05/10/2024. She took a break during the summer and has some staining, which she was informed would fade over time. She was advised to use an itching cream. She visited a coal deliverer a few weeks ago due to bruising on her legs. She was recommended to wear thigh-highs for two weeks and knee-highs thereafter, which she complies with on workdays. She had a thyroid ultrasound a year ago and is considering another one this year. She has had three ultrasounds so far. She has not had a CBC in two years. She experiences pain in her left sinus, which she manages with ibuprofen and Astelin nasal spray. The pain sometimes radiates to her ear, leading her to suspect an ear infection. She uses a saline nasal spray and occasionally hears a cracking sound in her left ear upon waking. She is attempting to lose weight through walking. She had a mole on her arm that became dry and pink around the edges, which was scraped and found to be benign. She reports no new diagnoses since her last physical. She believes she manages her stress well. SUBJECTIVE: PAST MEDICAL HISTORY: Past Medical History: Diagnosis Date Allergic seasonal Breast lump Chicken pox COVID-19 Family history of cancer GERD (gastroesophageal reflux disease) 2020 HPV (human papilloma virus) anogenital infection Irregular menses LGSIL of cervix of undetermined significance Miscarriage MEDICATIONS: Current Outpatient Medications Medication Instructions pimecrolimus (Elidel) 1 % cream APPLY A THIN LAYER TO AFFECTED AREAS ON FACE ONCE A DAY NEEDED FOR FLARES ALLERGIES: Allergies Allergen Reactions Gabapentin Headache SURGICAL HISTORY: Past Surgical History: Procedure Laterality Date CERVICAL BIOPSY W/ LOOP ELECTRODE EXCISION 02/2017 COLONOSCOPY 2021 HYSTERECTOMY 09/2017 PAP SMEAR 07/13/2017 VARICOSE VEIN SURGERY 08/2023 FAMILY HISTORY: Family History Problem Relation Name Age of Onset No Known Problems Sister Breast cancer Maternal Grandmother Laura Breast cancer Mother's Sister Megha Colon cancer Neg Hx Ovarian cancer Neg Hx SOCIAL HISTORY: Social History Tobacco Use Smoking status: Never Smokeless tobacco: Never Substance Use Topics Alcohol use: Yes Alcohol/week: 2.0 standard drinks of alcohol Types: 2 Glasses of wine per week Comment: caffeine: 1-2 cups per day coffee, soda, tea Drug use: Never Depression: Not at risk (04/09/2018) [facility] PHQ-2 PHQ-2 score: 0 REVIEW OF SYMPTOMS: Review of Systems OBJECTIVE: Visit Vitals BP 124/68 Pulse 73 Temp 96.7 F Resp 17 Ht 5' 6.5 Wt 188 lb SpO2 97% BMI 29.89 kg/m OB Status Hysterectomy Smoking Status Never BSA 2 m Physical Exam HENT: Head: Normocephalic. Right Ear: Ear canal normal. Left Ear: Ear canal normal. Ears: Comments: Bilateral TM with fluid behind TM, no redness Right tm with possible hole Nose: No congestion. Right Turbinates: Swollen. Left Turbinates: Enlarged and swollen. Left Sinus: Maxillary sinus tenderness present. Mouth/Throat: Pharynx: Oropharynx is clear. Eyes: Pupils: Pupils are equal, round, and reactive to light. Neck: Thyroid: No thyroid mass or thyromegaly. Vascular: No carotid bruit. Cardiovascular: Rate and Rhythm: Normal rate and regular rhythm. Heart sounds: No murmur heard. Pulmonary: Effort: Pulmonary effort is normal. Breath sounds: No wheezing. Lymphadenopathy: Cervical: No cervical adenopathy. Neurological: Mental Status: She is alert. Results Imaging Thyroid ultrasound showed a benign nodule measuring 7 x 7 x 6 mm in the midpole of the right lobe. ASSESSMENT AND PLAN: Assessment & Plan 1. Varicose veins. She has undergone multiple sclerotherapy treatments, including one on her foot and several on her legs. The treatments have been effective, although she has experienced some staining and bruising. She is advised to continue wearing knee-high compression stockings, especially on workdays. No further intervention is required at this time. 2. Thyroid nodule. The thyroid nodule has remained stable and even decreased in size based on the most recent ultrasound. Despite guidelines suggesting no further work-up, an additional thyroid ultrasound will be ordered to ensure continued stability. If the nodule remains stable, further monitoring may not be necessary. 3. Chronic sinusitis. She experiences intermittent sinus pain, primarily on the left side, which sometimes radiates to her ear. Ibuprofen and nasal sprays like Astelin have been helpful. A CT scan of the sinuses will be ordered to evaluate the condition further. If the CT scan reveals any significant findings, an ENT consultation will be considered. 4. Potential eardrum perforation. There is a suspicion of a perforation in the eardrum, particularly on the right side. An ENT consultation is recommended for further evaluation and confirmation. 5. Health Maintenance. A comprehensive metabolic panel, including blood glucose, kidney function, liver function, electrolytes, complete blood count, thyroid function, and lipid profile, will be ordered. She will have these tests done at [facility] office. Assessment/Plan Diagnoses and all orders for this visit: Well adult exam - Lipid panel; Future - Comprehensive metabolic panel; Future - HEMOGRAM CBC WITHOUT DIFF ([facility]); Future - TSH; Future Wellness performed at today. Height, weight, BMI, problem list, and immunizations records reviewed. Dental care discussed with patient. Encouraged annual vision screenings and semi-annual dental care. Encouraged to eat a diet that is rich in plant-based foods and lean protein. Encouraged regular periods of exercise. Limit or eliminate junk food and sources of excess calories. Encouraged to maintain open communication with provider regarding any changes in condition. Encouraged 150 minutes of exercise weekly or amount appropriate to current level of function. Discussed family/friend/social support and importance of maintaining emotional connections. Follow up annually and as needed. Patient verbalized understanding of importance of keeping open communication with health care providers. Varicose veins of bilateral lower extremities with pain Thyroid nodule ([facility] - US thyroid; Future Chronic sinusitis, unspecified location See above documented in this encounter [facility] 03-12-2024 History of Presen t illness Narrative Alicia Canseco is a 48 y.o. female presents with chief complaint of No chief complaint on file. HPI: History of Present Illness The patient is a 48-year-old female who presents to discuss a rash on her feet. She reports experiencing intermittent rashes on her feet, which initially do not cause discomfort but later become intensely itchy for a period of 3 to 4 days before gradually subsiding. The rashes are primarily located on her ankles, with one currently in the process of healing. She has not observed any rashes on the soles of her feet. She also noticed one rash on each of her calves. She spends time outdoors, often walking barefoot through grass at night, which she suspects might be the cause of the rashes. Despite wearing socks and shoes, the rashes persist. She recalls seeing small insects near her tomato plants and hose, and wonders if they could be the source of the rashes. Her does not have similar symptoms. She has taken measures such as changing bed linens and washing all bedding. She had scheduled an appointment with a coal deliverer last week but canceled it when the rashes disappeared. However, the rashes reappeared this morning. She was prescribed triamcinolone by a coal deliverer for a different condition but has not been using it for the rashes. She reports no discharge from the rashes. SUBJECTIVE: PAST MEDICAL HISTORY: Past Medical History: Diagnosis Date Allergic seasonal Breast lump Chicken pox COVID-19 Family history of cancer GERD (gastroesophageal reflux disease) 2020 HPV (human papilloma virus) anogenital infection Irregular menses LGSIL of cervix of undetermined significance Miscarriage MEDICATIONS: No current outpatient medications ALLERGIES: Allergies Allergen Reactions Gabapentin Headache SURGICAL HISTORY: Past Surgical History: Procedure Laterality Date CERVICAL BIOPSY W/ LOOP ELECTRODE EXCISION 02/2017 COLONOSCOPY 2021 HYSTERECTOMY 09/2017 PAP SMEAR 07/13/2017 VARICOSE VEIN SURGERY 08/2023 FAMILY HISTORY: Family History Problem Relation Name Age of Onset No Known Problems Sister Breast cancer Maternal Grandmother Laura Breast cancer Mother's Sister Megha Colon cancer Neg Hx Ovarian cancer Neg Hx SOCIAL HISTORY: Social History Tobacco Use Smoking status: Never Smokeless tobacco: Never Substance Use Topics Alcohol use: Yes Alcohol/week: 2.0 standard drinks of alcohol Types: 2 Glasses of wine per week Comment: caffeine: 1-2 cups per day coffee, soda, tea Drug use: Never Depression: Not at risk (04/09/2018) Re[facility] from [facility], [facility] PHQ-2 PHQ-2 score: 0 REVIEW OF SYMPTOMS: Review of Systems OBJECTIVE: Visit Vitals BP 122/76 Pulse 99 Temp 97.9 F Ht 5' 6 Wt 184 lb SpO2 99% BMI 29.70 kg/m OB Status Hysterectomy Smoking Status Never BSA 1.97 m Physical Exam Constitutional: Appearance: Normal appearance. Skin: Findings: Rash (firm red bites bilateral inner ankles) present. Neurological: General: No focal deficit present. Mental Status: She is alert. Results ASSESSMENT AND PLAN: Assessment & Plan 1. Foot rash. The appearance of the rash suggests it could be due to insect bites, possibly from chiggers or mosquitoes. The intense itching experienced further supports this hypothesis. She was advised to continue with her current management strategies. She has triamcinolone 0.1% and suggest she use tid and anything to help with itching. Recommendations included wearing knee-high socks and applying DEET spray on her legs, ankles, and feet when outdoors. She was also advised to take baking soda baths and apply triamcinolone cream up to three times daily. If these measures prove ineffective, she should inform the office or consult a coal deliverer. She was also advised to document the rash with photographs for future reference. Assessment/Plan Diagnoses and all orders for this visit: Insect bite of lower leg, unspecified laterality, initial encounter documented in this encounter [facility] 03-17-2023 Evaluation note Encounter Date Diagnosis Assessment Notes Mar, Venous insufficiency (ICD-10 - I87.2) Mar, Symptomatic varicose veins of both lower extremities (ICD-10 - I83.893) Mar, Other This patient has known venous insufficiency with previous EVLT with Dr. Nava many years ago. She has been stable for many years but returns today with symptoms of achiness, heaviness, leg fatigue, tenderness, and throbbing bilaterally unrelieved with conservative therapy efforts. She wears her graded compression stockings faithfully which aid in relief of symptoms on occasion. We discussed vein disease at length and all questions were addressed. We will start by obtaining a full functional venous duplex of bilateral lower extremities and have her back in the office to discuss any treatment needs based on those studies. She verbalizes understanding of all discussion, agrees with this plan, denies any questions. [facility] Other 03-01-2018 History general Narrative - Reported* Type Description Date Medical History No PMH Surgical History hysterectomy 09/2017 Surgical History LEEP 02/2017 [facility] Other Evaluation noteNo assessment information available [facility] Work Phone: Evaluation note* Diagnosis Onset Date Resolution Status Bilateral lower extremity edema acute Symptomatic varicose veins of both lower extremities acute Varicose veins of bilateral lower extremities with brandon n acute [facility] Work Phone: Evaluation note* Diagnosis Well adult exam- Primary Routine general medical examination at a health care facility Varicose veins of bilateral lower extremities with pain Thyroid nodule (CMS/HCC) Nontoxic uninodular goiter Chronic sinusitis, unspecified location [facility] Diagnosis Insect bite of lower leg, unspecified laterality, initial encounter- Primary [facility] Diagnosis Acute bacterial sinusitis- Primary Acute sinusitis, unspecified [facility] Diagnosis Well woman exam with routine gynecological exam Routine gynecological examination Breast cancer screening by mammogram Postmenopausal state Asymptomatic postmenopausal status (age-related) (natural) documented in this encounter [facility] Summary Purpose Family History No Family History Records FoundNo Family History Records FoundNo Family History Records FoundNo Family History Records Found Advance Directives Advance Directive Response Recorded Date/ Time Advance Directives No June 2:01pm Advance Directive Response Recorded Date/ Time Advance Directives No June 3:01pm Advance Directive Response Recorded Date/ Time Advance Directives No August 11, 2023 9:23am Chief Complaint and Reason for Visit Chief Complaint Screening Chief Complaint n63.10 n63.20 m79.89 r breast 10 oclock left 2:00 Chief Complaint n63.10 n63.20 m79.89 r breast 10 oclock left 2:00 i83.813 Chief Complaint i83.811 s/p varithen a Chief Complaint I83.811 s/p varithen a i83.812 s/p varithena Chief Complaint I83.811 s/p varithen a i83.812 s/p varithena 4 WK S/P VARITHENA; ULTRASOUND 08/21/23 Chief Complaint I83.811 s/p varithen a i83.812 s/p varithena 4 WK S/P VARITHENA; ULTRASOUND 08/21/23 B/L legs sclero Reason for Visit Bilateral lower extr emity edema Symptomatic varicose veins of both lower extremities Varicose veins of bilateral lower extremities with pain Chief Complaint I83.811 s/p varithen a i83.812 s/p varithena 4 WK S/P VARITHENA; ULTRASOUND 08/21/23 B/L legs sclero VARITHENA LT LEG FIRST Reason for Visit Bilateral lower extr emity edema Symptomatic varicose veins of both lower extremities Varicose veins of bilateral lower extremities with pain Chief Complaint i83.812 s/p varithen a 4 WK S/P VARITHENA; ULTRASOUND 08/21/23 B/L legs sclero VARITHENA LT LEG FIRST I83.893 s/p varithena Reason for Visit Bilateral lower extr emity edema Symptomatic varicose veins of both lower extremities Varicose veins of bilateral lower extremities with pain Chief Complaint z12.31 Chief Complaint z12.31 varithena rt thigh Chief Complaint z12.31 varithena rt thigh varithena lt thigh Chief Complaint Admit Date March 28, 2024 9:04am varithena rt thigh April 26, 2024 9 :39am varithena lt thigh May 03, 2024 7 :52am i83.812 May 10, 2024 8 :24am 5 wk varithena lt leg f/u May 30, 2024 9:42am Additional Source Comments INFORMATION SOURCE (unrecogn ized section and content) DATE CREATED AUTHOR 05/08/2018 [facility] DATE CREATED AUTHOR AUTHOR'S ORGANIZ ATION 02/23/2022 [facility] DATE CREATED AUTHOR AUTHOR'S ORGANIZ ATION 06/12/2024 [facility] DATE CREATED AUTHOR AUTHOR'S ORGANIZ ATION 12/28/2024 [facility] Care Teams (unrecognized sec tion and content) Team Status: Inactive Member Role Status Dates Jacque Hanson MD Primary Care Provider, Attending Ariel llamas Active Team Status: Active Member Role Status Dates Jacque Hanson MD Primary Care Provider Active Team Status: Inactive Member Role Status Dates Jacque Hanson MD Primary Care Provider Active Kit Mendez Attending Provider Active Team Status: Inactive Member Role Status Dates Jacque Hanson MD Primary Care Provider Active JERICHO Waters Attending Provider Active Team Status: Inactive Member Role Status Dates Jacque Hanson MD Primary Care Provider Active Start: August 07, 2023 End: August 07, 2023 JERICHO Waters Attending Provider Active Start: August 07, 2023 End: August 07, 2023 Team Status: Inactive Member Role Status Dates Jacque Hanson MD Primary Care Provider Active Start: August 21, 2023 End: August 21, 2023 JERICHO Waters Attending Provider Active Start: August 21, 2023 End: August 21, 2023 Team Status: Inactive Member Role Status Dates Jacque Hanson MD Primary Care Provider Active Start: September 07, 2023 End: September 07, 2023 Michael Connors MD Attending Provider Active Start: September 07, 2023 End: September 07, 2023 Team Status: Inactive Member Role Status Dates Jacque Hanson MD Primary Care Provider Active Start: October 06, 2023 End: October 06, 2023 JERICHO Waters Attending Provider Active Start: October 06, 2023 End: October 06, 2023 Team Status: Inactive Member Role Status Dates Jacque Hanson MD Primary Care Provider Active Start: November 03, 2023 End: November 03, 2023 JERICHO Waters Attending Provider Active Start: November 03, 2023 End: November 03, 2023 Team Status: Inactive Member Role Status Dates Jacque Hanson MD Primary Care Provider Active Start: November 13, 2023 End: November 13, 2023 JERICHO Waters Attending Provider Active Start: November 13, 2023 End: November 13, 2023 Team Status: Inactive Member Role Status Dates Jacque Hanson MD Primary Care Provider Active Start: March 28, 2024 End: March 28, 2024 Kit Mendez DO Attending Provider Active Start : March 28, 2024 End: March 28, 2024 Team Status: Inactive Member Role Status Dates Jacque Hanson MD Primary Care Provider Active Start: April 26, 2024 End: April 26, 2024 JERICHO Waters Attending Provider Active Start: April 26, 2024 End: April 26, 2024 Team Status: Inactive Member Role Status Dates Jacque Hanson MD Primary Care Provider Active Start: May 03, 2024 End: May 03, 2024 JERICHO Waters Attending Provider Active Start: May 03, 2024 End: May 03, 2024 Team Status: Inactive Member Role Status Dates Jacque Hanson MD Primary Care Provider Active Start: May 10, 2024 End: May 10, 2024 JERICHO Waters Attending Provider Active Start: May 10, 2024 End: May 10, 2024 Team Status: Inactive Member Role Status Dates Jacque Hanson MD Primary Care Provider Active Start: May 30, 2024 End: May 30, 2024 Michael Connors MD Attending Provider Active Start: May 30, 2024 End: May 30, 2024 Director Specialty Relationship Specialty Start Date End Date Jacque Hanson MD [address] [place] [address] PCP - General Family Medicine 01/13/23 Director Specialty Relationship Specialty Start Date End Date Jacque Hanson MD [address] [place] [address] PCP - General Family Medicine 01/13/23 Director Specialty Relationship Specialty Start Date End Date Jacque Hanson MD [address] [place] [address] PCP - General Family Medicine 01/13/23 Jacque Hanson MD [address] [place] [address] PCP - [employer] 04/16/23 Director Specialty Relationship Specialty Start Date End Date Jacque Hanson MD [address] [place] [address] PCP - General Family Medicine 01/13/23 Jacque Hanson MD [address] [place] [address] PCP - [employer] 04/16/23 Director Specialty Relationship Specialty Start Date End Date Jacque Hanson MD [address] [place] [address] PCP - General Family Medicine 01/13/23 Jacque Hanson MD [address] [place] [address] PCP - [employer] 04/16/23 Director Specialty Relationship Specialty Start Date End Date Jacque Hanson MD [address] [place] [address] PCP - General Family Medicine 01/13/23 Director Specialty Relationship Specialty Start Date End Date Jacque Hanson MD [address] [place] [address] PCP - General Family Medicine 01/13/23 Director Specialty Relationship Specialty Start Date End Date Jacque Hanson MD [address] [place] [address] PCP - General Family Medicine 01/13/23 Goals (unrecognized section and content) Goals may be documented in a n alternate sectionGoals may be documented in an alternate sectionNo InformationGoals may be documented in an alternate sectionGoals may be documented in an alternate sectionGoals may be documented in an alternate sectionGoals may be documented in an alternate sectionGoals may be documented in an alternate sectionGoals may be documented in an alternate sectionGoals may be documented in an alternate sectionGoals may be documented in an alternate sectionGoals may be documented in an alternate sectionGoals may be documented in an alternate sectionGoals may be documented in an alternate sectionGoals may be documented in an alternate section REASON FOR VISIT (unrecogniz ed section and content) Reason Comments sinus issues Reason Comments Well Women Visit FOR RECORDS PERTAINING TO PATIENTS WHO ARE OR HAVE BEEN ENROLLED IN A CHEMICAL DEPENDENCY/SUBSTANCEABUSE PROGRAM, SOME INFORMATION MAY BE OMITTED. This clinical summary was aggregated from multiple sources. Caution should be exercised in using it in the provision of clinical care. This summary normalizes information from multiple sources, and as a consequence, information in this document may materially change the coding, format and clinical context of patient data. In addition, data may be omitted in some cases. CLINICAL DECISIONS SHOULD BE BASED ON THE PRIMARY CLINICAL RECORDS. [facility]. provides no warranty or guarantee of the accuracy or completeness of information in this document.
[2025-03-19 16:09] LABS: Age Gdln ACOG Testing Note (.); IGP, Aptima HPV, rfx 16/18,45 Note (.)
== END 2025-03-13 21:57 | disposition home or self-care (01) ==
LOC: LAB 21:56
PROVIDERS: Visit Provider Obstetrics & Gynecology
DX: Z01.419 Encounter for gynecological examination (general) (routine) without abnormal findings (principal)
CPT/HCPCS: 87624; 88175